=== PATIENT | female | born 1975 | race Two or more races ===

== ENCOUNTER 2020-09-28 17:09 | Emergency (ER) | payer MEDICAID, SELFPAY ==
[2020-09-28 18:46] VITALS: BP 114/64; PULSE 73; RESP 18; TEMP 37.5; O2SAT 100; BMI 28.4
[2020-09-28 19:04] LABS: Glucose Urine UA NEG (NEG); Leukocyte Esterase Urine 3+ (NEG); Nitrite Urine POS (NEG); Specific Gravity - Urine 1.015 (1.005-1.025); UACC Culture Trigger YES; Urine Blood TRACE (NEG); Urine Ketones NEG (NEG); Urine Protein 2+ MG/DL (NEG-TRACE)
[2020-09-28 19:07] LABS: Appearance Urine CLOUDY; Color Urine YELLOW
[2020-09-28 19:12] LABS: Amorphous Sediment Urine 1+ /LPF; Bacteria Urine 1+ /LPF; Mucus Urine 2+ /LPF; Squamous Epithelial Cell Urine 2+ /LPF
--- NOTE | 2020-09-28 21:19 | ED_ITS ---
HPI - Female Genitourinary General Chief complaint: Urogenital-Female Stated complaint: pelvic pain Time Seen by Provider: 09/28/20 21:11 Source: patient Mode of arrival: ambulatory Limitations: no limitations History of Present Illness HPI Narrative: Patient comes to emergency room complaining of UTI symptoms. Patient states she has burning with urination. Patient denies fever, chills, no abdominal pain and no flank pain. Patient states about a week ago she had her menstrual period, think she might have scratched the inner wall of the vaginal canal, denies any bleeding or spotting. MD elicited complaint: UTI Related Data Previous Rx's Medication Instructions Recorded nitrofurantoin monohyd/m-cryst 100 mg PO Q12H 7 Days #14 cap 09/28/20 [Macrobid] phenazopyridine 100 mg PO TID #6 tab 09/28/20 Allergies Allergy/AdvReac Type Severity Reaction Status Date / Time No Known Allergies Allergy Verified 09/28/20 18:45 [No Known Allergies*] Review of Systems Review of Systems: Constitutional : No Weight loss, No Fever, No Chills, No Night Sweats, No Fatigue, No Malaise ENT/Mouth : No Hearing loss, No Ear Pain, No Nasal Congestion, No Sinus Pain, No Hoarseness, No sore throat, No Rhinorrhea, No Swallowing Difficulty Eyes: No Eye Pain, No Swelling, No Redness, No Foreign Body, No Discharge, No Vision Changes Cardiovascular : No Chest Pain, No SOB, No Dyspnea on Exertion, No Orthopnea, No Edema, No Palpitations Respiratory : No Cough, No Sputum, No Wheezing, No Smoke Exposure, No Dyspnea Gastrointestinal : No Nausea, No Vomiting, No Diarrhea, No Constipation, No abdominal Pain, No Hematochezia, No Melena Genitourinary : no irregular bleeding, complaining of dysuria and frequency No Hematuria, No Urinary Incontinence, No Urgency, No Flank Pain, No Urinary Flow Changes, No Hesitancy, complaining of a possible scratch and INR wall of the vaginal canal Musculoskeletal : No joint pain, No Myalgias, No Joint Swelling Skin : No Skin Lesions, No rash Neuro : No Weakness, No Numbness, No Paresthesias, No Loss of Consciousness, No Dizziness, No Headache Psych : No Anxiety/Panic, No Depression, No SI/HI/AH/VH, No Social Issues, Heme/Lymph: No Bruising, No Bleeding,No Lymphadenopathy Endocrine : No Polyuria, No Polydipsia, No Temperature Intolerance [facility] Past Medical History Medical History No pertinent past medical history Social History Social History Advance Directives: No Advance Directives Information Provided: Yes Patient : No Physical Exam Vital Signs: Vital Signs: Last Vital Signs Temp 99.5 F 09/28/20 18:46 Pulse 73 09/28/20 18:46 Resp 18 09/28/20 18:46 BP 114/64 09/28/20 18:46 Pulse Ox 100 09/28/20 18:46 Body Mass Index 28.4 Appearance: Alert. Oriented X3. No acute distress. Eyes: Pupils equal, round and reactive to light. ENT: Pharynx normal. Neck: Normal inspection. Neck supple. No lymph nodes noted. No crepitus CVS: Normal heart rate and rhythm. Pulses normal. Normal S1 and S2 Respiratory: No respiratory distress. Breath sounds normal. No Wheezing. No rales Abdomen: Soft and nontender. No rigidity. No distention. No CVA tenderness : Normal skin, no lacerations in the vaginal mucosa. Skin: Skin warm and dry. Normal skin color. Normal skin turgor. Extremities: No lower extremity edema. No lower extremity edema. No Lacerations. No Rash Neuro: Oriented X 3. No motor deficit. No sensory deficit. Moving all extermities. No slurred speech. Course Course Course Narrative: I discussed the physical exam with the patient, patient has a urinary tract infection, pyelonephritis and sepsis not suspected at this time. MDM - Female Genitourinary Lab Data Labs: Lab Results 09/28/20 Range/Units 18:56 Urine Color YELLOW Urine Appearance CLOUDY Urine pH 7.0 (5.0-8.0) Ur Specific [place] 1.015 (1.005-1.025) Urine Protein 2+ H (NEG-TRACE) MG/DL Urine Glucose (UA) NEG (NEG) MG/DL Urine Ketones NEG (NEG) MG/DL Urine Blood TRACE (NEG) Urine Nitrite POS H (NEG) Ur Leukocyte Esterase 3+ H (NEG) Urine RBC 5-9 H (0) /HPF Urine WBC 76-150 H (0-4) /HPF Ur Squamous Epith Cells 2+ /LPF Amorphous Sediment 1+ /LPF Urine Bacteria 1+ /LPF Urine Mucus 2+ /LPF Discharge Plan Discharge Clinical Impression: Urinary tract infection Patient Disposition: Home, Self-Care Instructions: Urinary Tract Infection in Women (ED) Additional Instructions: Try using different brands of tampons, some have classic applicator, others have paper applicator. Please follow-up with your primary care physician tomorrow. If you have any worsening or new symptoms, please return to the emergency room or call 911 Prescriptions: New nitrofurantoin monohyd/m-cryst [Macrobid] 100 mg capsule 100 mg PO Q12H 7 Days Qty: 14 RF: 0 phenazopyridine 100 mg tablet 100 mg PO TID Qty: 6 RF: 0
[2020-09-28] MEDS: Phenazopyridine HCL 100 MG TABLET PO (22:04)
[2020-09-28] MEDS: Nitrofurantoin Monohyd/M-Cryst 100 MG CAPSULE PO (22:04)
== END 2020-09-28 22:07 | disposition home or self-care (01) ==
PROVIDERS: Emergency Provider Emergency Medicine; PCP Nurse Practitioner Family
DX: N39.0 Urinary tract infection, site not specified (principal)
CPT/HCPCS: 81001; 81003; 87086; 87088; 87186; 99283

== ENCOUNTER 2021-06-11 14:27 | Emergency (ER) | payer MEDICAID, SELFPAY ==
[2021-06-11] VITALS (10 sets, daily range): BP systolic 109–120; BP diastolic 53–67; PULSE 55–89; RESP 16–18; TEMP 36.2–37.8; O2SAT 100; BMI 28.3
--- NOTE | ~2021-06-11 | CT_ITS ---
EXAMINATION: CT ABDOMEN AND PELVIS WITH CONTRAST CLINICAL INFORMATION: Abnormal ultrasound COMPARISON: Ultrasound dated same day TECHNIQUE: Multidetector volumetric images were obtained from the superior aspect of the liver through the pubic symphysis following administration 85 mL of Omnipaque 350 intravenous contrast. Sagittal and coronal reformatted images were obtained on the technologist's workstation. Oral contrast: No This CT examination was performed using dose optimization techniques as appropriate, variously including the following: *Automated exposure control *Adjustment of mA and/or kV according to patient size (this includes techniques or standardized protocols for targeted exams where dose is matched to indication/reason for exam; i.e. extremities or head) *Use of iterative reconstruction technique DLP: 597 mGy-cm FINDINGS: LUNG BASES: The visualized lung bases are unremarkable. LIVER, GALLBLADDER, AND BILIARY TREE: Some scattered small areas of low density are likely incidental. The gallbladder is unremarkable with no evidence of radiopaque gallstones, gallbladder wall thickening, or obvious pericholecystic inflammatory changes. PANCREAS: Unremarkable. SPLEEN: Unremarkable. ADRENAL GLANDS: Unremarkable. KIDNEYS AND URETERS: The kidneys are normal in size, shape, and attenuation. No hydronephrosis, hydroureter, or calculi seen. No perinephric stranding. BLADDER: Unremarkable. GASTROINTESTINAL TRACT: Nonobstructive bowel pattern. ABDOMINAL WALL: No significant hernia is appreciated. LYMPH NODES: Normal. VASCULAR: Unremarkable. PELVIC VISCERA: There is complex attenuation within the pelvis on the right. There is an area of high attenuation which appears somewhat serpiginous and this may well represent an extension of a prominent ovarian vein. The high attenuation may suggest thrombosis. Below this level there is questionable rounded structure measuring 1.4 x 1 cm which could represent a decompressing cyst.. Just posterior to this structure is another possible thick walled structure measuring 1.5 x 1.5 cm. Probable high left ovarian structure. There is free fluid in the cul-de-sac. OSSEOUS STRUCTURES: Unremarkable. CT/CT abdomen pelvis w con IMPRESSION: The right adnexal region is abnormal. As described there is an area of high density which appears serpiginous. Measuring 2 x 1.1 x 2.1 cm. This could be an inferior extension of a prominent ovarian vein. The high attenuation could suggest thrombosis or possible lesion. Small area of hemorrhage would need to be considered Just below this findings may suggest a irregular thick-walled cyst which is decompressing. Posterior to this structure is another possible thick-walled cystic structure There is free fluid. Endometriosis would need to be considered. PID would need to be considered. Complex Ovarian lesion needs to be considered These findings do not exclude the diagnosis of possible distortion Recommendation is pre and postcontrast MRI of the pelvis for further evaluation. Recommend gynecologic consultation Fleischner guidelines were followed.
--- NOTE | ~2021-06-11 | US_ITS ---
EXAMINATION: US PELVIS AND TRANSVAGINAL CLINICAL INFORMATION: Pain. Last menstrual period unknown. History of prior . COMPARISON: Pelvic ultrasound dated from 12/25/2012. TECHNIQUE: Ultrasound of the pelvis is performed using both transabdominal and transvaginal transducers along with Doppler. Transvaginal imaging is performed due to inadequate visualization transabdominally. FINDINGS: UTERUS: The uterus is anteverted and measures 9.7 x 4.8 x 5.6 cm. No fibroids are identified. The double wall endometrial thickness is 9 mm. Nabothian cysts overlie the cervix. The uterus is smooth in contour and has normal myometrial echogenicity. ADNEXA: The right ovary is enlarged and heterogeneous but with preserved flow at the moment of this examination. It measures 4.8 x 4.4 x 3.1 cm (34 mL) without discrete lesions. The left ovary measures 3.2 x 2.5 x 3.0 cm (13 mL) with an approximately 2.4 cm simple cyst, which likely represents a dominant follicle. There is a small amount of free fluid in the cul-de-sac and surrounding the right adnexa. US/US pelvic and transvaginal IMPRESSION: Abnormal appearance of the right ovary which is enlarged and heterogeneous. Although there is some flow within this ovary at the moment of this examination, partial torsion or torsion/detorsion is suspected. Recommend correlation with a CT of the pelvis with intravenous contrast or an MRI of the pelvis with and without intravenous contrast. A distinct lesion within the right ovary is not definitely appreciated. This critical result was discussed with Ree Watters NP at 06/11/2021 7:31 PM and it was ascertained that the content and urgency of the report was understood at the time of direct communication.
--- NOTE | ~2021-06-11 | MR_ITS ---
EXAMINATION: MR PELVIS WITHOUT AND WITH CONTRAST CLINICAL INFORMATION: 46-year-old female with pelvic pain. COMPARISON: Pelvic ultrasound and CT examination from 06/11/2021. TECHNIQUE: MR imaging the pelvis performed on a high-field magnet using standard sequences without and with intravenous administration of 8 mL Gadavist. FINDINGS: The anteverted, anteflexed uterus measures 8.1 x 4.9 x 5.7 cm (cervix to fundus x AP x transverse dimension). There are a few nabothian cysts of the cervix. Otherwise, the cervix is unremarkable. There is a section defect of the anterior lower uterine segment. The endometrium is normal and measures up to 0.9 cm AP. The junctional zone of the myometrium is normal. No evidence of adenomyosis. No uterine leiomyoma. The Essure devices are better seen on the abdomen CT than on this MRI. These devices produce susceptibility artifact (images 17-19, series 10). The right ovary measures 2.5 x 3.5 x 2.1 cm, volume of 9.6 mL, which represents interval decreased size compared to the ultrasound from 06/11/2021. There appears to be a 1.4 cm corpus luteum of the right ovary. There are no pathologic sized follicles within the ovary. No evidence of a hemorrhagic focus. No foci of abnormal T1 signal shortening in the pelvis on the noncontrast images. No findings of endometriosis. The left ovary, which is more anteriorly located than the right ovary, measures 2.4 x 3.5 x 2.3 cm, volume of 10.1 mL. The dominant follicle of the left ovary is 1.9 cm. Small amount of simple appearing free fluid is present within the pelvis. Urinary bladder and urethra are unremarkable. No iliac or inguinal lymphadenopathy. No dilated loops of bowel within the visualized lower abdomen and pelvis. The rectum is unremarkable. The visualized bones of the pelvis have normal marrow signal. The sacroiliac joints are normal. At the L5-S1 level, there is a posterior annular fissure and small central disc protrusion. No significant spinal canal or neural foraminal stenosis at L5-S1. MR/MR pelvis wo/w con IMPRESSION: * No MR imaging evidence of ovarian mass or torsion. The ovaries are normal in size. No evidence of endometriosis. * Small amount of simple appearing free fluid in the pelvis could be secondary to recent rupture of an ovarian cyst/follicle.
[2021-06-11 14:53] LABS: Appearance Urine CLEAR; Basophils Percent Auto 0.3 % (0-2); Color Urine YELLOW; Eosinophils Absolute Auto 0.1 X10*3/uL (0.0-0.4); Glucose Urine UA NEG (NEG); Hematocrit 22.3 % (37.0-47.0); Imm Gran Abs Auto 0.03 X10*3/uL (0.00-0.03); Imm Gran Pct Auto 0.5 % (0.0-0.4); Leukocyte Esterase Urine 1+ (NEG); Lymphocytes Absolute Auto 1.3 X10*3/uL (1.2-4.9); Lymphocytes Percent Auto 19.5 % (20-40); MANUAL DIFF FLAG SCAN; Mean Corpuscular Hemoglobin 15.2 pg (27.0-33.0); Monocytes Absolute Auto 0.3 X10*3/uL (0.1-1.2); Monocytes Percent Auto 5.1 % (2-11); Neutrophils Absolute Auto 4.8 x10*3/uL (2.0-8.3); Neutrophils Percent Auto 72.6 % (45-73); Nitrite Urine NEG (NEG); PH 5.5 (5.0-8.0); PLT CLUMP 1; Red Blood Count 3.81 X10*6/uL (4.20-5.50); Red Cell Distribution Width 21.5 % (11.0-16.0); SCAN SMEAR FLAG 1; Specific Gravity - Urine 1.025 (1.005-1.025); UACC Culture Trigger YES; Urine Blood NEG (NEG); Urine Ketones 5 MG/DL (NEG); Urine Protein NEG (NEG-TRACE)
[2021-06-11 15:04] LABS: Bacteria Urine 2+ /LPF; RBC Urine 0 /HPF (0); Squamous Epithelial Cell Urine 2+ /LPF
[2021-06-11 15:06] LABS: Mean Corpuscular Volume 58.5 fL (80.0-98.0)
[2021-06-11 15:07] LABS: Alanine Aminotransferase 9 U/L (0-31); Albumin Level 4.3 g/dL (3.5-5.0); Alkaline Phosphatase 58 U/L (39-117); Anion Gap 15 (12-20); Aspartate Amino Transferase 10 U/L (5-31); Bilirubin Total 0.5 mg/dL (0.0-1.0); Blood Urea Nitrogen 12 mg/dL (9-16); Calcium 9.2 mg/dL (8.4-10.2); Carbon Dioxide 20 mmol/L (22-29); Chloride 106 mmol/L (96-108); Creatinine Clr Calc Pharmacy 87.9; Estimated Glomerular Filt Rate > 60; Glucose Random 121 mg/dL (60-115); Hemoglobin 5.8 g/dl (12.0-16.0); Potassium 4.1 mmol/L (3.3-5.1); Sodium 137 mmol/L (135-145); Total Protein 7.7 g/dL (6.5-8.0)
[2021-06-11 15:09] LABS: White Blood Count 6.6 X10*3/uL (4.8-10.8)
[2021-06-11 15:10] LABS: Platelet Count 310 X10*3/uL (160-400); SLIDE REVIEW VERIFIED
[2021-06-11 15:45] LABS: UPreg QC Valid YES; Urine Pregnancy NEGATIVE (NEGATIVE)
--- NOTE | 2021-06-11 15:54 | ED.FEMALEGU ---
HPI - Female Genitourinary General Chief complaint: Urogenital-Female <Ree Watters NP - Last Filed: 06/11/21 21:22> Stated complaint: Abd pain <Ree Watters NP - Last Filed: 06/11/21 21:22> Time Seen by Provider: 06/11/21 15:20 <Ree Watters NP - Last Filed: 06/11/21 21:22> Source: patient <Ree Watters NP - Last Filed: 06/11/21 21:22> Mode of arrival: ambulatory <Ree Watters NP - Last Filed: 06/11/21 21:22> Limitations: no limitations <Ree Watters NP - Last Filed: 06/11/21 21:22> History of Present Illness HPI Narrative: 46 yo female with history of heavy, long periods for years here with reports of 2 weeks of pelvic pressure and pain with radiation to the legs, feeling dizzy with position changes and movement. Patient is sexually active with 1 male partner who she has been with for several years. She is not concern for STD exposure. She denies any nausea, vomiting, diarrhea, fevers or chills. She is having some dysuria and frequency. <Ree Watters NP - Last Filed: 06/11/21 21:22> Related Data Home medications: Home Medications Medication Instructions Recorded Confirmed No Known Home Meds 06/12/21 06/12/21 <Ree Watters NP - Last Filed: 06/11/21 21:22> Allergies/Adverse reactions: Allergies Allergy/AdvReac Type Severity Reaction Status Date / Time No Known Allergies Allergy Verified 06/11/21 14:33 [No Known Allergies*] <Ree Watters NP - Last Filed: 06/11/21 21:22> Review of Systems Review of Systems: Yes all other systems are reviewed and are negative <Ree Watters NP - Last Filed: 06/11/21 21:22> Constitutional: Constitutional: Reports no additional constitutional complaints, Denies body ache(s), Denies chills, Denies fever(s), Denies headache(s) and Denies weakness <Ree Watters FLEXO FOLDER GLUER OPERATOR - Last Filed: 06/11/21 21:22> Eyes: Eyes: Reports no additional eye complaints and Denies change in vision <Ree Watters NP - Last Filed: 06/11/21 21:22> ENT: Reports system reviewed and no additional complaints, except as documented, Denies dizziness, Denies headache(s), Denies nasal congestion, Denies nasal discharge and Denies neck pain <Ree Watters FLEXO FOLDER GLUER OPERATOR - Last Filed: 06/11/21 21:22> Cardiovascular: Cardiovascular: Reports no additional cardiovascular complaints, Denies chest pain, Denies leg edema and Denies dyspnea <Ree Watters FLEXO FOLDER GLUER OPERATOR - Last Filed: 06/11/21 21:22> Respiratory: Respiratory: Reports no additional respiratory complaints, Denies cough and Denies dyspnea <Ree Watters FLEXO FOLDER GLUER OPERATOR - Last Filed: 06/11/21 21:22> Gastrointestinal: Gastrointestinal: Reports no additional gastrointestinal complaints, Denies abdominal pain, Denies diarrhea, Denies nausea and Denies vomiting <Ree Watters FLEXO FOLDER GLUER OPERATOR - Last Filed: 06/11/21 21:22> Genitourinary: Genitourinary: Reports no additional female genitourinary complaints, Reports abnormal vaginal bleeding, Reports pelvic pain, Denies flank pain, Denies urinary incontinence, Denies urinary hesitancy and Reports urinary urgency <Ree Watters FLEXO FOLDER GLUER OPERATOR - Last Filed: 06/11/21 21:22> Comments: +frequency <Ree Watters FLEXO FOLDER GLUER OPERATOR - Last Filed: 06/11/21 21:22> Musculoskeletal: Musculoskeletal: Reports no additional musculoskeletal complaints, Denies back pain, Denies arthralgias, Denies joint swelling, Denies neck pain, Denies numbness and Denies tingling <Ree Watters FLEXO FOLDER GLUER OPERATOR - Last Filed: 06/11/21 21:22> Integumentary/Breasts: Skin/Breast: Reports system reviewed and no additional complaints, except as docu and Denies rash <Ree Watters FLEXO FOLDER GLUER OPERATOR - Last Filed: 06/11/21 21:22> Neurologic: Reports system reviewed and no additional complaints, except as documented, Denies Abnormal speech present, Denies dizziness, Denies headache(s), Denies numbness, Denies tingling and Denies weakness <Ree Watters NP - Last Filed: 06/11/21 21:22> [facility] Past Medical History Attestation statement: The following information was validated with the patient. <Ree Watters NP - Last Filed: 06/11/21 21:22> Source: old records reviewed and nursing notes reviewed <Ree Watters NP - Last Filed: 06/11/21 21:22> Medical History: Medical History No pertinent past medical history <Ree Watters NP - Last Filed: 06/11/21 21:22> Social History Social History: Social History Patient Tobacco Use Status: Never used Tobacco Use of substances other than those prescribed or required for medical reasons: No Advance Directives: No Advance Directives Information Provided: No <Ree Watters NP - Last Filed: 06/11/21 21:22> Physical Exam Vital Signs: Vital Signs: Last Vital Signs Temp 98.7 F 06/12/21 08:04 Pulse 59 06/12/21 08:04 Resp 18 06/12/21 08:04 BP 105/52 L 06/12/21 08:04 Pulse Ox 97 06/12/21 05:55 BMI result Body Mass Index 28.3 <Ree aWtters NP - Last Filed: 06/11/21 21:22> Const: General: cooperative, healthy appearing, comfortable and no acute distress <Ree Watters NP - Last Filed: 06/11/21 21:22> Orientation/consciousness: patient oriented x3 <Ree Watters NP - Last Filed: 06/11/21 21:22> Limitations: no limitations <Ree Watters NP - Last Filed: 06/11/21 21:22> HEENT: Head: Yes normal to inspection <Ree Watters NP - Last Filed: 06/11/21 21:22> Ears: hearing grossly normal bilaterally and TM's normal bilaterally <Ree Watters NP - Last Filed: 06/11/21 21:22> General nose exam: Normal external nose present <Ree Watters NP - Last Filed: 06/11/21 21:22> Face and sinus: Yes normal facial exam <Ree Watters NP - Last Filed: 06/11/21 21:22> Mouth: Normal oral and palatal mucosa present <Ree Watters NP - Last Filed: 06/11/21 21:22> Throat: Yes posterior oropharynx normal, Yes tonsils normal and Yes uvula midline <Ree Watters NP - Last Filed: 06/11/21 21:22> Eyes: Other: Pale conjunctivae <Ree Watters NP - Last Filed: 06/11/21 21:22> General: appearance normal, both eyes and all related structures <Ree Watters NP - Last Filed: 06/11/21 21:22> Pupils: Equal, round and reactive pupils present <Ree Watters NP - Last Filed: 06/11/21 21:22> Neck: Neck: Yes normal visual inspection <Ree Watters NP - Last Filed: 06/11/21 21:22> Chest: Chest palpation & inspection: normal inspection of the chest <Ree Watters NP - Last Filed: 06/11/21 21:22> Resp: Effort & Inspection: normal respiratory effort <Ree Watters NP - Last Filed: 06/11/21 21:22> Auscultation: clear to auscultation bilaterally <Ree Watters NP - Last Filed: 06/11/21 21:22> Cardio: Rate: regular rate <Ree Watters NP - Last Filed: 06/11/21 21:22> Rhythm: regular rhythm <Ree Watters NP - Last Filed: 06/11/21 21:22> Peripheral pulses: Peripheral pulses 2+ throughout <Ree Watters NP - Last Filed: 06/11/21 21:22> GI: Inspection: Yes normal to inspection <Ree Watters NP - Last Filed: 06/11/21 21:22> Palpation (GI): Soft to palpation and nontender <Ree Watters NP - Last Filed: 06/11/21 21:22> Auscultation: normal bowel sounds <Ree Watters FLEXO FOLDER GLUER OPERATOR - Last Filed: 06/11/21 21:22> : Other: Yessenia cheney present as toe trimmer <Ree Watters FLEXO FOLDER GLUER OPERATOR - Last Filed: 06/11/21 21:22> Speculum Exam - Vagina: normal appearance of the vagina <Ree Watters FLEXO FOLDER GLUER OPERATOR - Last Filed: 06/11/21 21:22> Speculum Exam - Cervix: normal appearance of the cervix <Ree Watters FLEXO FOLDER GLUER OPERATOR - Last Filed: 06/11/21 21:22> Bimanual exam- vagina & uterus: normal bimanual exam <Ree Watters NP - Last Filed: 06/11/21 21:22> Bimanual Exam- Adnexa, other: normal adnexae <Ree Watters NP - Last Filed: 06/11/21 21:22> Back/Spine/Pelvis: Thoracic/Lumbar Spine: thoracic and lumbar spine normal to inspection <Ree Watters NP - Last Filed: 06/11/21 21:22> Skin: General skin exam: no rashes or lesions noted <Ree Watters NP - Last Filed: 06/11/21 21:22> Neuro: General: patient oriented x3, no focal motor deficits and normal sensation to monofilament <Ree Watters NP - Last Filed: 06/11/21 21:22> Cranial nerves: Yes Equal, round and reactive pupils present <Ree Watters NP - Last Filed: 06/11/21 21:22> Cognition (Neuro): normal cognition <Ree Watters NP - Last Filed: 06/11/21 21:22> Speech: No Abnormal speech present <Ree Watters NP - Last Filed: 06/11/21 21:22> Gait exam (Neuro): Normal gait present <Ree Watters NP - Last Filed: 06/11/21 21:22> Motor exam (neuro): 5/5 motor strength present throughout <Ree Watters NP - Last Filed: 06/11/21 21:22> Extrem: General: Yes normal to inspection, Yes no pedal edema and Yes no calf tenderness <Ree Watters NP - Last Filed: 06/11/21 21:22> Course Course Course Narrative: 46-year-old female here with reports of longstanding history of heavy and vaginal bleeding. Not having pelvic pain with some urinary symptoms. Will check labs, UA, pelvic ultrasound, check pelvic exam 163-patient's hemoglobin is 5.8. Most previous hemoglobin of from May of 2019 was 7.6. Type and screen ordered. 2 units of PRBC ordered. Patient consented for blood 1929-ultrasound showed IMPRESSION: Abnormal appearance of the right ovary which is enlarged and heterogeneous. Although there is some flow within this ovary at the moment of this examination, partial torsion or torsion/detorsion is suspected. Recommend correlation with a CT of the pelvis with intravenous contrast or an MRI of the pelvis with and without intravenous contrast. A distinct lesion within the right ovary is not definitely appreciated. -I spoke to the radiologist that this. She recommend obtaining a CT of the pelvis with IV contrast to evaluate further. -I spoke to the patient.. She has not seen a way inspector several years. She cannot recall her last Pap smear. 2119-Sign out to Susan LEON pending CT A/P <Ree Watters NP - Last Filed: 06/11/21 21:22> MDM - Female Genitourinary Medical Records Attestation: I reviewed the patient's medical records. <Ree Watters NP - Last Filed: 06/11/21 21:22> Lab Data Attestation: I reviewed the patient's lab results. <Ree Watters NP - Last Filed: 06/11/21 21:22> Result diagrams: : 06/12/21 06:00 06/11/21 14:39 <Ree Watters NP - Last Filed: 06/11/21 21:22> Labs: Lab Results 06/11/21 06/11/21 06/11/21 Range/Units 14:39 14:39 14:39 WBC 6.6 (4.8-10.8) X10*3/uL RBC 3.81 L (4.20-5.50) X10*6/uL Hgb 5.8 L* (12.0-16.0) g/dl Hct 22.3 L (37.0-47.0) % MCV 58.5 L (80.0-98.0) fL MCH 15.2 L (27.0-33.0) pg MCHC 26.0 L (31.0-35.0) g/dl RDW 21.5 H (11.0-16.0) % Plt Count 310 (160-400) X10*3/uL MPV Not Reportable Immature Gran % (Auto) 0.5 H (0.0-0.4) % Neut % (Auto) 72.6 (45-73) % Lymph % (Auto) 19.5 L (20-40) % [place] % (Auto) 5.1 (2-11) % Eos % (Auto) 2.0 (0-4) % Baso % (Auto) 0.3 (0-2) % Lymph # (Auto) 1.3 (1.2-4.9) X10*3/uL [place] # (Auto) 0.3 (0.1-1.2) X10*3/uL Eos # (Auto) 0.1 (0.0-0.4) X10*3/uL Baso # (Auto) 0.0 (0.0-0.2) X10*3/uL Abs Immat Gran (auto) 0.03 (0.00-0.03) X10*3/uL Absolute Neuts (auto) 4.8 (2.0-8.3) x10*3/uL Absolute Nucleated RBC 0.000 (0.0-0.012) X10*3/uL Nucleated RBC % (auto) 0.0 (0.0-0.2) /100WBC Smear Tech's Comments VERIFIED PT (9.9-13.0) SEC INR (0.9-1.1) Sodium 137 (135-145) mmol/L Potassium 4.1 (3.3-5.1) mmol/L Chloride 106 (96-108) mmol/L Carbon Dioxide 20 L (22-29) mmol/L Anion Gap 15 (12-20) BUN 12 (9-16) mg/dL Creatinine 0.83 (0.5-1.4) mg/dL Estim Creat Clear Calc 87.9 Estimated GFR > 60 Random Glucose 121 H (60-115) mg/dL Calcium 9.2 (8.4-10.2) mg/dL Total Bilirubin 0.5 (0.0-1.0) mg/dL AST 10 (5-31) U/L ALT 9 (0-31) U/L Alkaline Phosphatase 58 (39-117) U/L Troponin I High Sens Total Protein 7.7 (6.5-8.0) g/dL Albumin 4.3 (3.5-5.0) g/dL Urine Color YELLOW Urine Appearance CLEAR Urine pH 5.5 (5.0-8.0) Ur Specific [place] 1.025 (1.005-1.025) Urine Protein NEG (NEG-TRACE) MG/DL Urine Glucose (UA) NEG (NEG) MG/DL Urine Ketones 5 (NEG) MG/DL Urine Blood NEG (NEG) Urine Nitrite NEG (NEG) Ur Leukocyte Esterase 1+ H (NEG) Urine RBC 0 (0) /HPF Urine WBC 15-29 H (0-4) /HPF Ur Squamous Epith Cells 2+ /LPF Urine Bacteria 2+ /LPF Urine Test (NEGATIVE) COVID-19 (FLAVIO) (Negative) COVID-19 Clin Com Blood Type Antibody Screen Crossmatch 06/11/21 06/11/21 06/11/21 Range/Units 14:39 14:39 15:54 WBC (4.8-10.8) X10*3/uL RBC (4.20-5.50) X10*6/uL Hgb (12.0-16.0) g/dl Hct (37.0-47.0) % MCV (80.0-98.0) fL MCH (27.0-33.0) pg MCHC (31.0-35.0) g/dl RDW (11.0-16.0) % Plt Count (160-400) X10*3/uL MPV Immature Gran % (Auto) (0.0-0.4) % Neut % (Auto) (45-73) % Lymph % (Auto) (20-40) % [place] % (Auto) (2-11) % Eos % (Auto) (0-4) % Baso % (Auto) (0-2) % Lymph # (Auto) (1.2-4.9) X10*3/uL [place] # (Auto) (0.1-1.2) X10*3/uL Eos # (Auto) (0.0-0.4) X10*3/uL Baso # (Auto) (0.0-0.2) X10*3/uL Abs Immat Gran (auto) (0.00-0.03) X10*3/uL Absolute Neuts (auto) (2.0-8.3) x10*3/uL Absolute Nucleated RBC (0.0-0.012) X10*3/uL Nucleated RBC % (auto) (0.0-0.2) /100WBC Smear Tech's Comments PT 13.4 H (9.9-13.0) SEC INR 1.2 H (0.9-1.1) Sodium (135-145) mmol/L Potassium (3.3-5.1) mmol/L Chloride (96-108) mmol/L Carbon Dioxide (22-29) mmol/L Anion Gap (12-20) BUN (9-16) mg/dL Creatinine (0.5-1.4) mg/dL Estim Creat Clear Calc Estimated GFR Random Glucose (60-115) mg/dL Calcium (8.4-10.2) mg/dL Total Bilirubin (0.0-1.0) mg/dL AST (5-31) U/L ALT (0-31) U/L Alkaline Phosphatase (39-117) U/L Troponin I High Sens Cancelled Total Protein (6.5-8.0) g/dL Albumin (3.5-5.0) g/dL Urine Color Urine Appearance Urine pH (5.0-8.0) Ur Specific [place] (1.005-1.025) Urine Protein (NEG-TRACE) MG/DL Urine Glucose (UA) (NEG) MG/DL Urine Ketones (NEG) MG/DL Urine Blood (NEG) Urine Nitrite (NEG) Ur Leukocyte Esterase (NEG) Urine RBC (0) /HPF Urine WBC (0-4) /HPF Ur Squamous Epith Cells /LPF Urine Bacteria /LPF Urine Test NEGATIVE (NEGATIVE) COVID-19 (FLAVIO) (Negative) COVID-19 Clin Com Blood Type Antibody Screen Crossmatch 06/11/21 06/12/21 06/12/21 Range/Units 15:58 00:52 06:00 WBC 6.1 (4.8-10.8) X10*3/uL RBC 3.65 L (4.20-5.50) X10*6/uL Hgb 6.4 L* (12.0-16.0) g/dl Hct 22.6 L (37.0-47.0) % MCV 61.9 L (80.0-98.0) fL MCH 17.5 L (27.0-33.0) pg MCHC 28.3 L (31.0-35.0) g/dl RDW 25.8 H (11.0-16.0) % Plt Count TNP (160-400) X10*3/uL MPV TNP Immature Gran % (Auto) 0.2 (0.0-0.4) % Neut % (Auto) 60.3 (45-73) % Lymph % (Auto) 28.4 (20-40) % [place] % (Auto) 8.5 (2-11) % Eos % (Auto) 2.3 (0-4) % Baso % (Auto) 0.3 (0-2) % Lymph # (Auto) 1.7 (1.2-4.9) X10*3/uL [place] # (Auto) 0.5 (0.1-1.2) X10*3/uL Eos # (Auto) 0.1 (0.0-0.4) X10*3/uL Baso # (Auto) 0.0 (0.0-0.2) X10*3/uL Abs Immat Gran (auto) 0.01 (0.00-0.03) X10*3/uL Absolute Neuts (auto) 3.7 (2.0-8.3) x10*3/uL Absolute Nucleated RBC 0.000 (0.0-0.012) X10*3/uL Nucleated RBC % (auto) 0.0 (0.0-0.2) /100WBC Smear Tech's Comments VERIFIED PT (9.9-13.0) SEC INR (0.9-1.1) Sodium (135-145) mmol/L Potassium (3.3-5.1) mmol/L Chloride (96-108) mmol/L Carbon Dioxide (22-29) mmol/L Anion Gap (12-20) BUN (9-16) mg/dL Creatinine (0.5-1.4) mg/dL Estim Creat Clear Calc Estimated GFR Random Glucose (60-115) mg/dL Calcium (8.4-10.2) mg/dL Total Bilirubin (0.0-1.0) mg/dL AST (5-31) U/L ALT (0-31) U/L Alkaline Phosphatase (39-117) U/L Troponin I High Sens Total Protein (6.5-8.0) g/dL Albumin (3.5-5.0) g/dL Urine Color Urine Appearance Urine pH (5.0-8.0) Ur Specific [place] (1.005-1.025) Urine Protein (NEG-TRACE) MG/DL Urine Glucose (UA) (NEG) MG/DL Urine Ketones (NEG) MG/DL Urine Blood (NEG) Urine Nitrite (NEG) Ur Leukocyte Esterase (NEG) Urine RBC (0) /HPF Urine WBC (0-4) /HPF Ur Squamous Epith Cells /LPF Urine Bacteria /LPF Urine Test (NEGATIVE) COVID-19 (FLAVIO) Negative (Negative) COVID-19 Clin Com See Note Blood Type O Positive Antibody Screen NEGATIVE Crossmatch See Detail <Ree Watters NP - Last Filed: 06/11/21 21:22> Imaging Data US - abdomen: Attestation: I personally reviewed and interpreted this imaging study as follows: <Ree Watters NP - Last Filed: 06/11/21 21:22> Radiologist's impression: IMPRESSION: Abnormal appearance of the right ovary which is enlarged and heterogeneous. Although there is some flow within this ovary at the moment of this examination, partial torsion or torsion/detorsion is suspected. Recommend correlation with a CT of the pelvis with intravenous contrast or an MRI of the pelvis with and without intravenous contrast. A distinct lesion within the right ovary is not definitely appreciated. <Ree Watters NP - Last Filed: 06/11/21 21:22> ECG Data Attestation: I personally reviewed and interpreted this ECG as follows: <Ree Watters NP - Last Filed: 06/11/21 21:22> ECG interpretation date: 06/11/21 <Ree Watters NP - Last Filed: 06/11/21 21:22> ECG interpretation time: 18:03 <Ree Watters NP - Last Filed: 06/11/21 21:22> Interpretation: Normal sinus rhythm with rate 87, normal PA, normal QRS, normal QT <Ree Watters NP - Last Filed: 06/11/21 21:22> Discharge Plan Discharge Clinical Impression: Anemia, Hemorrhagic ovarian cyst, Thrombosis of ovarian vein <Ree Watters NP - Last Filed: 06/11/21 21:22> Patient Disposition: Admitted As Inpatient <Ree Watters NP - Last Filed: 06/11/21 21:22>
[2021-06-11 16:03] LABS: INTERNATIONAL NORM RATIO 1.2 (0.9-1.1); Prothrombin Time 13.4 SEC (9.9-13.0)
--- NOTE | 2021-06-11 17:23 | PC.NURSE ---
pt off floor to ultrasound
[2021-06-11] MEDS: Ketorolac Tromethamine 30 MG/ML VIAL IVPUSH (20:33)
[2021-06-11] MEDS: iohexoL 350 MG/ML 100 ML INFUS..BTL IV (20:55)
[2021-06-12] VITALS (13 sets, daily range): BP systolic 97–117; BP diastolic 42–66; PULSE 57–71; RESP 16–18; TEMP 36.3–37.8; O2SAT 97–99
--- NOTE | 2021-06-12 00:53 | PC.NURSE ---
CALL OUT TO [facility] ([phone]) @[phone] REGARDING TRANSFER OF PATIENT
[2021-06-12 01:10] LABS: COVID-19 Test Negative (Negative)
[2021-06-12] MEDS: Morphine Sulfate 4 MG/ML CARTRIDGE IVPUSH (01:53)
--- NOTE | 2021-06-12 01:57 | PC.NURSE ---
call out to [facility] transfer line ([phone]) @[phone]. Not accepting any non emergent patients at this time
[2021-06-12 06:07] LABS: Basophils Percent Auto 0.3 % (0-2); Eosinophils Absolute Auto 0.1 X10*3/uL (0.0-0.4); Eosinophils Percent Auto 2.3 % (0-4); Hematocrit 22.6 % (37.0-47.0); Imm Gran Abs Auto 0.01 X10*3/uL (0.00-0.03); Imm Gran Pct Auto 0.2 % (0.0-0.4); Lymphocytes Absolute Auto 1.7 X10*3/uL (1.2-4.9); Lymphocytes Percent Auto 28.4 % (20-40); MANUAL DIFF FLAG SCAN; Mean Corpuscular HGB Conc 28.3 g/dl (31.0-35.0); Mean Corpuscular Hemoglobin 17.5 pg (27.0-33.0); Monocytes Absolute Auto 0.5 X10*3/uL (0.1-1.2); Monocytes Percent Auto 8.5 % (2-11); Neutrophils Absolute Auto 3.7 x10*3/uL (2.0-8.3); Neutrophils Percent Auto 60.3 % (45-73); PLT CLUMP 1; Red Blood Count 3.65 X10*6/uL (4.20-5.50); Red Cell Distribution Width 25.8 % (11.0-16.0); SCAN SMEAR FLAG 1
[2021-06-12 06:11] LABS: Hemoglobin 6.4 g/dl (12.0-16.0); Mean Corpuscular Volume 61.9 fL (80.0-98.0)
[2021-06-12 06:24] LABS: White Blood Count 6.1 X10*3/uL (4.8-10.8)
[2021-06-12 06:25] LABS: SLIDE REVIEW VERIFIED
--- NOTE | 2021-06-12 06:27 | PM.EVENT ---
Event Note Date of Service: 06/12/21 Event Note: I was asked to admit this patient for abnormal CT of the pelvic/adnexal region. After reviewing the CT scan in detail, I feel that patient would be best served by [facility] team. I was able to get in touch with Dr. Anderson, we discussed the case over the phone. Dr. Anderson will be evaluating the patient in the ED. patient hemoglobin did not improve with 2 units of PRBC, I ordered 1 unit of PRBC presuming that she may be under my care initially, as well as 1 L of LR given her hypotension. I will no longer be the physician taking care of this patient as this is a gynecological issue, discussed with Dr. Justin Srinivasan and he will be resuming care from now on. ED was also updated on this information
[2021-06-12] MEDS: traMADoL HCL 50 MG TABLET PO (06:51)
--- NOTE | 2021-06-12 07:12 | PC.NURSE ---
pt alert and oriented, skin appropriate for ethnicity, respirations even and unlabored, pt reports lower abd/pelvic pain at 6/10, denies vaginal bleeding. dr Anderson arrived to evaluate the pt
--- NOTE | 2021-06-12 07:29 | P.CONOB_ITS ---
DEPOSITION REPORTER - CN: HPI Data of Consult Consult date: 06/12/21 Primary Care Provider: Emily Butt NP Consult Narrative Narrative: I was consulted on Bronwyn Nava, at 7 a.m.,(at the beginning of my call shift), the patient is a 46 year old female presented emergency room yesterday with right sided pelvic pain that started 2 weeks ago. The pain started slowly more on the right no associated GI or symptoms, no fever or chills, no nausea or vomiting. The patient has a long-term history of heavy menstrual associated with passage blood clots and pelvic cramping. In the emergency room the following workup was done: Urine showed +1 leukocyte esterase and wbc's, urine culture sent, negative test. H&H 5.8/22.3, the patient received 2 units of packed RBCs, repeat H and H 06:00 was 6.4/22.6 Pelvic ultrasound was done showed the following: Abnormal appearance of the right ovary which is enlarged and heterogeneous. Although there is some flow within this ovary at the moment of this examination, partial torsion or torsion/detorsion is suspected. Recommend correlation with a CT of the pelvis with intravenous contrast or an MRI of the pelvis with and without intravenous contrast. A distinct lesion within the right ovary is not definitely appreciated. MRI not available overnight so a CT scan of abdomen and pelvis was done and showed the following: There is complex attenuation within the pelvis on the right. There is an area of high attenuation which appears somewhat serpiginous and this may well represent an extension of a prominent ovarian vein. The high attenuation may suggest thrombosis. Below this level there is questionable rounded structure measuring 1.4 x 1 cm which could represent a decompressing cyst.. Just posterior to this structure is another possible thick walled structure measuring 1.5 x 1.5 cm. Probable high left ovarian structure. There is free fluid in the cul-de-sac. The patient is doing well with minimal pain in the right pelvic area, nausea or vomiting, no vaginal bleeding. cc:: CC: MECHATRONICS TECHNICIAN - Review of Systems Review of Systems ROS Unobtainable: All systems reviewed & are unremarkable except as noted in HPI and below Cardiovascular: Denies Palpatations, Loss of consciousness or Chest pain Respiratory: Denies Cough, Wheezing or Shortness of breath Musculoskeletal: Denies Low back pain Gastrointestinal: Denies Heartburn, Constipation, Diarrhea, Nausea or Vomiting Genitourinary: Denies Pain with urination, Burning with urination or Urinary frequency Neurological: Denies Migranes Psychological: Denies Depression OB PMFSH Past Medical History Medical History No pertinent past medical history Social History Social History Patient Tobacco Use Status: Never used Tobacco Use of substances other than those prescribed or required for medical reasons: No Advance Directives: No Advance Directives Information Provided: No Meds Allergies Allergy/AdvReac Type Severity Reaction Status Date / Time No Known Allergies Allergy Verified 06/11/21 14:33 [No Known Allergies*] DEPOSITION REPORTER Physical Exam Vitals Vital signs: Temp Pulse Resp BP Pulse Ox 99.6 F 61 16 104/52 L 97 06/12/21 02:00 06/12/21 06:30 06/12/21 06:30 06/12/21 06:30 06/12/21 05:55 BMI result Body Mass Index 28.3 Constitutional General Appearance: Healthy appearing, Well-nourished and Well-developed Psychiatric Mood and Affect: active and alert, normal mood and normal affect Skin Appearance: No rashes and No lesions Lungs Respiratory Effort: No intercostal retractions Auscultation: Clear to auscultation Cardiovascular Auscultation: RRR Abdomen Auscultation/Inspection/Palpation: Normal bowel sounds, Soft, Non-distended, No CVA tenderness, Tenderness (Mild right abdominal tenderness, no guarding or rebound) and Guarding Female Genitalia (Pelvic) Vulva: No lesions Cervix: Cervical motion tenderness Uterus: Tender Adnexa/Parametria: Adnexal Tenderness: Right Additional Comments: No bleeding per vagina; White discharge in the vagina DEPOSITION REPORTER - Results Labs CBC & Chem 7: 06/12/21 11:42 06/11/21 14:39 Labs: Short CBC 06/11/21 06/12/21 Range/Units 14:39 06:00 WBC 6.6 6.1 (4.8-10.8) X10*3/uL Hgb 5.8 L* 6.4 L* (12.0-16.0) g/dl Hct 22.3 L 22.6 L (37.0-47.0) % Plt Count 310 TNP (160-400) X10*3/uL BMP 06/11/21 14:39 Sodium 137 Potassium 4.1 Chloride 106 Carbon Dioxide 20 L BUN 12 Creatinine 0.83 Calcium 9.2 Liver Function 06/11/21 Range/Units 14:39 Total Bilirubin 0.5 (0.0-1.0) mg/dL AST 10 (5-31) U/L ALT 9 (0-31) U/L Alkaline Phosphatase 58 (39-117) U/L Albumin 4.3 (3.5-5.0) g/dL Urine 06/11/21 06/11/21 Range/Units 14:39 14:39 Urine Color YELLOW Urine Appearance CLEAR Urine pH 5.5 (5.0-8.0) Ur Specific [place] 1.025 (1.005-1.025) Urine Protein NEG (NEG-TRACE) MG/DL Urine Glucose (UA) NEG (NEG) MG/DL Urine Test NEGATIVE (NEGATIVE) Antibody Screen Antibody Screen NEGATIVE 06/11/21 15:[address] scan - pelvis: Radiologist's impression: ITS Impressions Pelvic/Transvag US 06/11/21 17:34 IMPRESSION: Abnormal appearance of the right ovary which is enlarged and heterogeneous. Although there is some flow within this ovary at the moment of this examination, partial torsion or torsion/detorsion is suspected. Recommend correlation with a CT of the pelvis with intravenous contrast or an MRI of the pelvis with and without intravenous contrast. A distinct lesion within the right ovary is not definitely appreciated. This critical result was discussed with Ree Watters NP at 06/11/2021 7:31 PM and it was ascertained that the content and urgency of the report was understood at the time of direct communication. Abdomen/Pelvis CT 06/11/21 20:59 IMPRESSION: The right adnexal region is abnormal. As described there is an area of high density which appears serpiginous. Measuring 2 x 1.1 x 2.1 cm. This could be an inferior extension of a prominent ovarian vein. The high attenuation could suggest thrombosis or possible lesion. Small area of hemorrhage would need to be considered Just below this findings may suggest a irregular thick-walled cyst which is decompressing. Posterior to this structure is another possible thick-walled cystic structure There is free fluid. Endometriosis would need to be considered. PID would need to be considered. Complex Ovarian lesion needs to be considered These findings do not exclude the diagnosis of possible distortion Recommendation is pre and postcontrast MRI of the pelvis for further evaluation. Recommend gynecologic consultation Fleischner guidelines were followed. Assessment and Plan (1) Anemia: Status: Acute Recommended 1 unit of packed RBC and repeat CBC prior to discharge. Since the patient is not currently having any vaginal bleeding, recommend iron sulfate 325 mg p.o. t.i.d. with out patient follow-up in office in 3 days for workup and treatment for abnormal uterine bleeding including endometrial biopsy to rule out endometrial pathology including hyperplasia endometrial malignancy or polyps 11:42 H&H post transfusion 7.5/25.9 12:40 MRI of the pelvis showed the following: *? No MR imaging evidence of ovarian mass or torsion. The ovaries are normal in size. No evidence of endometriosis. *? Small amount of simple appearing free fluid in the pelvis could be secondary to recent rupture of an ovarian cyst/follicle. Discharge the patient for follow-up in the office in 3 days with the following instructions come back to the emergency room in case of fever above 100.4, nausea and vomiting, persistent or worsening of the pain heavy vaginal bleeding. ? (2) Pelvic pain: Status: Acute Since the patient has positive cervical motion tenderness uterine adnexal tenderness will treat for possible PID with Levaquin/Flagyl p.o. Recommended MRI of the pelvis. If there are no concerning findings on MRI will discharge patient on p.o. antibiotics, follow-up in the office in 3 days. Instructions to be given the patient to call in case of fever, nausea and vomiting, worsening of the pain, heavy vaginal
--- NOTE | 2021-06-12 07:55 | PC.NURSE ---
pt is reporting some nausea at this time
[2021-06-12] MEDS: ondansetron HCL 4 MG/2 ML VIAL IVPUSH (08:10)
--- NOTE | 2021-06-12 10:03 | PC.NURSE ---
pt reports that her nausea is better
[2021-06-12 10:11] LABS: CT PCR NOT DETECTED (Not Detect.); NG PCR NOT DETECTED (Not Detect.)
--- NOTE | 2021-06-12 10:22 | PC.NURSE ---
pt of to mri
--- NOTE | 2021-06-12 11:30 | PC.NURSE ---
pt a&ox3, vss, reports decreased dizziness, pain remains the same at 6/10, labs drawn, pt requesting ice chips.
[2021-06-12 11:35] LABS: MANUAL DIFF FLAG NO
[2021-06-12 11:44] LABS: Basophils Percent Auto 0.3 % (0-2); Eosinophils Absolute Auto 0.1 X10*3/uL (0.0-0.4); Eosinophils Percent Auto 1.3 % (0-4); Hematocrit 25.4 % (37.0-47.0); Hemoglobin 7.3 g/dl (12.0-16.0); Imm Gran Abs Auto 0.03 X10*3/uL (0.00-0.03); Imm Gran Pct Auto 0.5 % (0.0-0.4); Lymphocytes Absolute Auto 0.9 X10*3/uL (1.2-4.9); Lymphocytes Percent Auto 14.2 % (20-40); Mean Corpuscular HGB Conc 28.7 g/dl (31.0-35.0); Mean Corpuscular Hemoglobin 18.5 pg (27.0-33.0); Mean Corpuscular Volume 64.3 fL (80.0-98.0); Monocytes Absolute Auto 0.4 X10*3/uL (0.1-1.2); Monocytes Percent Auto 6.8 % (2-11); Neutrophils Absolute Auto 4.6 x10*3/uL (2.0-8.3); Neutrophils Percent Auto 76.9 % (45-73); Platelet Count 248 X10*3/uL (160-400); Red Blood Count 3.95 X10*6/uL (4.20-5.50); Red Cell Distribution Width 28.2 % (11.0-16.0)
[2021-06-12 11:46] LABS: MANUAL DIFF FLAG NO
[2021-06-12 11:51] LABS: Basophils Percent Auto 0.3 % (0-2); Eosinophils Absolute Auto 0.1 X10*3/uL (0.0-0.4); Eosinophils Percent Auto 1.6 % (0-4); Hematocrit 25.9 % (37.0-47.0); Hemoglobin 7.5 g/dl (12.0-16.0); Imm Gran Abs Auto 0.03 X10*3/uL (0.00-0.03); Imm Gran Pct Auto 0.5 % (0.0-0.4); Lymphocytes Percent Auto 15.6 % (20-40); Mean Corpuscular Hemoglobin 18.8 pg (27.0-33.0); Monocytes Absolute Auto 0.4 X10*3/uL (0.1-1.2); Monocytes Percent Auto 6.9 % (2-11); Neutrophils Absolute Auto 4.8 x10*3/uL (2.0-8.3); Neutrophils Percent Auto 75.1 % (45-73); Platelet Count 247 X10*3/uL (160-400); Red Cell Distribution Width 28.2 % (11.0-16.0); White Blood Count 6.3 X10*3/uL (4.8-10.8)
[2021-06-12 11:52] LABS: Mean Corpuscular Volume 64.8 fL (80.0-98.0)
--- NOTE | 2021-06-12 13:54 | PC.NURSE ---
went into room to discharge pt, pt reporting new headache, diaphoretic, provider notified, rectal exam and blood occult sample collected by provider, regular diet lunch tray ordered for pt - hasn't eaten since yesterday. will continue to monitor.
[2021-06-12 13:55] LABS: OBS1 NEGATIVE (NEGATIVE)
[2021-06-12 13:56] LABS: OBS Int Ctl Valid YES
--- NOTE | 2021-06-12 15:39 | PC.NURSE ---
pt a&ox3, vss, ambulated around ED, pt reports very slight dizziness, decrease in pain - headache resolved, spoke w provider, okay to discharge.
== END 2021-06-12 20:49 | disposition home or self-care (01) ==
PROVIDERS: Internal Medicine; Nurse Practitioner Family; Obstetrics & Gynecology; Emergency Provider Emergency Medicine; PCP Nurse Practitioner Family
DX: D64.9 Anemia, unspecified (principal); N83.201 Unspecified ovarian cyst, right side; I82.890 Acute embolism and thrombosis of other specified veins; R10.2 Pelvic and perineal pain; N93.9 Abnormal uterine and vaginal bleeding, unspecified; R42 Dizziness and giddiness; Z20.822 Contact with and (suspected) exposure to COVID-19
CPT/HCPCS: 36415; 36430; 72197; 74177; 76830; 76856; 80053; 81001; 81025; 82272; 85025; 85610; 86850; 86900; 86901; 86923; 87086; 87088; 87186; 87491; 87591; 87635; 96374; 96375; 99285; A9585; J1885; J2270; J2405; P9016; Q9967

== ENCOUNTER 2021-06-22 14:13 | Outpatient (REF) | payer MEDICAID, SELFPAY ==
[2021-06-22 16:04] LABS: Hemoglobin 8.6 g/dl (12.0-16.0)
[2021-06-22 16:05] LABS: Hematocrit 30.2 % (37.0-47.0); Mean Corpuscular HGB Conc 28.5 g/dl (31.0-35.0); Mean Corpuscular Hemoglobin 19.7 pg (27.0-33.0); Mean Corpuscular Volume 69.1 fL (80.0-98.0); Platelet Count 380 X10*3/uL (160-400); Red Blood Count 4.37 X10*6/uL (4.20-5.50); White Blood Count 5.2 X10*3/uL (4.8-10.8)
[2021-06-22 16:26] LABS: PLT ABN DIST 1
[2021-06-22 16:52] LABS: HCG Quantitative < 2 mIU/mL; TSH reflex Free T4 2.82 uIU/mL (0.32-4.0)
[2021-06-22 18:23] LABS: CT PCR NOT DETECTED (Not Detect.); NG PCR NOT DETECTED (Not Detect.)
[2021-06-24 17:01] LABS: HPV mRNA E6/E7 rflx Not Detected (Not Detected)
== END 2021-06-22 14:14 | disposition home or self-care (01) ==
LOC: HO.LAB 14:13
PROVIDERS: PCP Nurse Practitioner Family; Visit Provider Obstetrics & Gynecology
DX: Z01.411 Encounter for gynecological examination (general) (routine) with abnormal findings (principal); Z11.51 Encounter for screening for human papillomavirus (HPV); N93.9 Abnormal uterine and vaginal bleeding, unspecified
CPT/HCPCS: 36415; 81025; 84443; 84702; 85027; 87491; 87591; 87624; 88142; 88305; 99212

== ENCOUNTER → 2021-06-28 14:54 | Outpatient (BNVA) | payer MEDICAID, SELFPAY | PROVIDERS: PCP Nurse Practitioner Family; Visit Provider Obstetrics & Gynecology | DX: N93.9 Abnormal uterine and vaginal bleeding, unspecified (principal) | CPT/HCPCS: 99212 ==

== ENCOUNTER 2021-07-01 15:59 | Outpatient (REF) | payer MEDICAID, SELFPAY ==
--- NOTE | ~2021-07-01 | MM_ITS ---
EXAMINATION: MM SCREENING DIGITAL BREAST TOMOSYNTHESIS, BILATERAL CLINICAL INFORMATION: Screening. Asymptomatic. No prior breast imaging. Age 46. No known family history breast cancer. The lifetime risk of breast cancer based on the Tyrer-Cuzick Model is 8%. COMPARISON: None (current study represents initial baseline exam). TECHNIQUE: Digital breast tomosynthesis is performed in both the craniocaudal and mediolateral oblique views along with computer-aided detection (CAD). Synthesized 2D images are generated from the tomosynthesis. FINDINGS: There are scattered areas of fibroglandular density (ACR BI-RADS breast composition Category b). There are no significant masses, abnormal calcifications, or other abnormalities. The axilla and skin contours are unremarkable. MM/MM tomosynthesis screening BI IMPRESSION: No mammographic evidence of malignancy. ASSESSMENT: BI-RADS 1: Negative RECOMMENDATION: Routine annual mammography screening. This patient's information was entered into a reminder system with a target due date for their next mammogram.
== END 2021-07-01 16:00 | disposition home or self-care (01) ==
LOC: HO.MAMMO 15:59
PROVIDERS: Visit Provider Obstetrics & Gynecology
DX: Z12.31 Encounter for screening mammogram for malignant neoplasm of breast (principal)
CPT/HCPCS: 77063; 77067

== ENCOUNTER 2021-07-02 10:43 | Day surgery (SDC) | payer MEDICAID, SELFPAY ==
--- NOTE | 2021-07-01 08:49 | HO.ANESPROP2 ---
Documented by User: Livia Timmons NP 07/01/21 08:50 HPI - Anesthesia Eval Consult details Narrative: 46yo F for Uterine Ablation w/Novasure PMF Active Problems Active Problems: All Active Problems (Updated 06/28/21 @ 15:09 by Adryan Anderson MD) Abnormal uterine bleeding (Acute) Pelvic pain (Acute) Past Medical History Medical History No pertinent past medical history Family History Family History Maternal Grandmother Breast CA Surgical History Surgical History H/O gastric sleeve H/O tubal ligation Hx of section Social History Social History Patient Tobacco Use Status: Never used Tobacco Are you DNR?: No Advance Directives: No Advance Directives Information Provided: Yes Nutrition Risks: No Nutritional Risk Patient : No Meds Allergies Allergy/AdvReac Type Severity Reaction Status Date / Time No Known Allergies Allergy Verified 06/22/21 14:26 [No Known Allergies*] Exam Exam Date and Time: July 01, 2021 0849 Pertinent Lab Results Pertinent Lab Results: Laboratory Tests 06/11/21 06/22/21 14:39 15:18 WBC 5.2 Hgb 8.6 L Hct 30.2 L Plt Count 380 D Sodium 137 Potassium 4.1 Chloride 106 BUN 12 Creatinine 0.83 Assessment and Plan Assessment Anesthesia Assessment: Chart Reviewed Documented by User: Elina Smallwood MD 07/02/21 11:13 PMF Past Medical History Medical History No pertinent past medical history Family History Family History Maternal Grandmother Breast CA Family history of problems with anesthesia: No Surgical History Surgical History H/O gastric sleeve H/O tubal ligation Hx of section History of Problems with Anesthesia: No Social History Social History Patient Tobacco Use Status: Never used Tobacco Are you DNR?: No Advance Directives: No Advance Directives Information Provided: Yes Nutrition Risks: No Nutritional Risk Patient : No Meds Allergies Allergy/AdvReac Type Severity Reaction Status Date / Time No Known Allergies Allergy Verified 06/22/21 14:26 [No Known Allergies*] Exam Airway Mallampati Class: II TM Dist: >3cm Neck ROM: Full Heart: rrr Lungs: cta Assessment and Plan Assessment Anesthesia Assessment: Anesthesia Plan Discussed and Chart Reviewed Final Anesthetic Review Family History of Problems with Anesthesia: No History of Problems with Anesthesia: No NPO: Yes ASA Class: II Final Preanesthetic Review: No Changes in Pt Med Stat, Meds/Allgs Chart Reviewed and Consent Obtained/Reviewed Patient Risk: Intermediate Procedure Risk: Intermediate Anesthetic Plan Anesthetic Plan: GA Disposition: Standard PACU
[2021-07-02] VITALS (7 sets, daily range): BP systolic 105–144; BP diastolic 63–81; PULSE 34–75; RESP 14–18; TEMP 36.2–36.4; O2SAT 96–100; BMI 28.4
[2021-07-02 11:00] LABS: UPreg QC Valid YES; Urine Pregnancy NEGATIVE (NEGATIVE)
--- NOTE | 2021-07-02 11:11 | MHC.SHP ---
Pre-Procedural Eval Section A Date of Service: 07/02/21 The patient is an INPATIENT: No Changes since office visit: No Cold of Flu in the past 2 weeks, No New Medical Problems, No Changes in Medication and No Patient answered all questions The History & Physical has been completed within 30 days and I have reviewed it.: Yes Section B Chief Complaint: bleeding Allergies: Allergies Allergy/AdvReac Type Severity Reaction Status Date / Time No Known Allergies Allergy Verified 06/22/21 14:26 [No Known Allergies*] Plan Diagnosis/Plan: Unchanged I have reviewed the history and physical and performed a pertinent physical examination on my patient. No changes have occurred unless specified.
--- NOTE | 2021-07-02 12:45 | P.BOP_ITS ---
Brief Operative Note Date of Service: 07/02/21 Pre-op diagnosis: Abnormal uterine bleeding Post-op diagnosis: same Procedure: NovaSure Endometrial Ablation Surgeon: Adryan Anderson MD Anesthesia: MAC Was an Field Support Specialist used for this Procedure?: No Estimated blood loss (mL): 0 Pathology: none sent Condition: stable Disposition: PACU
--- NOTE | 2021-07-02 12:45 | W.PM.OPN ---
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 She was prepped and draped in the usual sterile manner. Bimanual exam prior to prepping revealed a mobile, anteverted uterus. A speculum was placed in the vagina and the anterior lip of the cervix was grasped with a single toothed tenaculum and brought forward. Taking care not to enter deep into the uterus, a sound was passed inside to measure the length of the uterus and cervix. This length was found to be 8 cm. Next, Hegar dilator was inserted into the cervical os to measure the cervical length which was 3 cm. This yielded an endometrial cavity length of 6.5 cm. A series of Hegar dilators were then inserted sequentially into the cervical os up to a size of 5 mm. The Novasure device was then opened and tested; the fan deployed easily. The instrument was set to the correct cavity length and introduced into the uterine cavity. The fan was slowly deployed with gentle movements to ensure a snug fit within the cavity. The cavity width read 4.5 cm. The measurements were imported and a cavity check was done. The trumpet was then slid down to the cervix and the device was activated. The total burn time was 94 seconds. The fan was retracted and device removed. The fan was examined and revealed charred tissue. The tenaculum was removed and the cervix examined for hemostasis which was achieved using pressure. Finally the speculum was removed. The patient tolerated the procedure well and was brought to the recovery room in a stable condition. At the end of the procedure all sponges and instruments were counted and correct. The blood loss was minimal and there were no complications.
[2021-07-02] MEDS: oxyCODONE HCl Immed Release 5 MG TABLET PO (13:15)
[2021-07-02] MEDS: Acetaminophen 325 MG TABLET 650 MG PO (13:15)
== END 2021-07-02 14:18 | disposition home or self-care (01) ==
PROVIDERS: PCP Nurse Practitioner Family; Visit Provider Obstetrics & Gynecology
PROC: (CPT 58353; principal; 2021-07-02 13:30)
DX: N93.9 Abnormal uterine and vaginal bleeding, unspecified (principal); Z98.51 Tubal ligation status; Z98.84 Bariatric surgery status; Z79.899 Other long term (current) drug therapy
CPT/HCPCS: 58353; 81025; J1100; J2250; J2405; J3010

== ENCOUNTER → 2021-11-03 11:15 | Outpatient (BNVA) | payer MEDICAID, SELFPAY | PROVIDERS: PCP Nurse Practitioner Family; Visit Provider Physician Assistant Surgical | DX: E66.3 Overweight (principal); Z68.29 Body mass index [BMI] 29.0-29.9, adult; Z98.84 Bariatric surgery status; Z90.3 Acquired absence of stomach [part of] | CPT/HCPCS: 99212 ==

== ENCOUNTER 2021-11-15 12:24 | Outpatient (REF) | payer MEDICAID, SELFPAY ==
[2021-11-15 12:52] LABS: MANUAL DIFF FLAG NO
[2021-11-15 13:34] LABS: Basophils Percent Auto 0.5 % (0-2); Eosinophils Absolute Auto 0.2 X10*3/uL (0.0-0.4); Eosinophils Percent Auto 3.5 % (0-4); Hematocrit 32.4 % (37.0-47.0); Imm Gran Abs Auto 0.03 X10*3/uL (0.00-0.03); Imm Gran Pct Auto 0.7 % (0.0-0.4); Lymphocytes Absolute Auto 1.2 X10*3/uL (1.2-4.9); Lymphocytes Percent Auto 27.3 % (20-40); Mean Corpuscular HGB Conc 30.9 g/dl (31.0-35.0); Mean Corpuscular Hemoglobin 24.6 pg (27.0-33.0); Mean Corpuscular Volume 79.6 fL (80.0-98.0); Mean Platelet Volume 10.5 fL (9.4-12.3); Monocytes Absolute Auto 0.2 X10*3/uL (0.1-1.2); Monocytes Percent Auto 5.1 % (2-11); Neutrophils Absolute Auto 2.7 x10*3/uL (2.0-8.3); Neutrophils Percent Auto 62.9 % (45-73); Platelet Count 327 X10*3/uL (160-400); Red Blood Count 4.07 X10*6/uL (4.20-5.50); Red Cell Distribution Width 19.1 % (11.0-16.0); White Blood Count 4.3 X10*3/uL (4.8-10.8)
[2021-11-15 13:43] LABS: Estimated Average Glucose 100 mg/dL; Hemoglobin A1c % 5.1 %
[2021-11-15 14:03] LABS: Alanine Aminotransferase 8 U/L (0-31); Alkaline Phosphatase 64 U/L (39-117); Anion Gap 15 (12-20); Aspartate Amino Transferase 12 U/L (5-31); Bilirubin Total 0.5 mg/dL (0.0-1.0); Blood Urea Nitrogen 14 mg/dL (9-16); C Reactive Protein 0.09 mg/dL (< or = 0.50); Carbon Dioxide 28 mmol/L (22-29); Chloride 105 mmol/L (96-108); Cholesterol 196 mg/dL; Estimated Glomerular Filt Rate > 60; Glucose Random 89 mg/dL (60-115); HDL Cholesterol 60 mg/dL; Iron 30 mcg/dL (30-160); LDL Cholesterol Calculated 121 mg/dl; Percent Iron Saturation 7 % (15-50); Potassium 4.5 mmol/L (3.3-5.1); Sodium 143 mmol/L (135-145); Total Iron Binding Capacity 402 mcg/dL (228-428); Total Protein 7.1 g/dL (6.5-8.0); Triglycerides 79 mg/dL; Unsaturated Iron Binding 372 ug/dL
[2021-11-15 14:32] LABS: Ferritin 6 ng/mL (10-250); Insulin 6 uU/mL (2-29); TSH reflex Free T4 1.04 uIU/mL (0.32-4.0); Vitamin D 25-OH Total 24.6 ng/mL (>30)
[2021-11-15 14:39] LABS: Folate 7.8 ng/mL (> or = 4.0); Vitamin B12 270 pg/mL (200-900)
[2021-11-17 11:02] LABS: Calcium (PTHI) 9.2 mg/dL (8.6-10.2); PTHI 44 pg/mL (16-77)
[2021-11-18 16:17] LABS: Zinc 57 mcg/dL (60-130)
[2021-11-19 11:51] LABS: Vitamin B1 9 nmol/L (8-30)
[2021-11-19 21:42] LABS: Vitamin A 51 mcg/dL (38-98)
== END 2021-11-15 12:25 | disposition home or self-care (01) ==
LOC: HO.LAB 12:24
PROVIDERS: PCP Nurse Practitioner Family; Visit Provider Physician Assistant Surgical
DX: Z90.3 Acquired absence of stomach [part of] (principal)
CPT/HCPCS: 36415; 80053; 80061; 82306; 82607; 82728; 82746; 83036; 83525; 83540; 83970; 84425; 84443; 84590; 84630; 85025; 86140

== ENCOUNTER → 2021-12-15 10:02 | Outpatient (BNVA) | payer MEDICAID, SELFPAY | PROVIDERS: PCP Nurse Practitioner Family; Visit Provider Physician Assistant Surgical | DX: E66.9 Obesity, unspecified (principal); Z90.3 Acquired absence of stomach [part of]; Z68.30 Body mass index [BMI] 30.0-30.9, adult | CPT/HCPCS: 99212 ==

== ENCOUNTER 2022-01-12 12:48 | Emergency (ER) | payer MEDICAID, SELFPAY ==
--- NOTE | ~2022-01-12 | XR_ITS ---
EXAMINATION: XR CHEST CLINICAL INFORMATION: Chest pain COMPARISON: 06/19/2018 TECHNIQUE: Frontal view of the chest was obtained. FINDINGS: No significant abnormality is noted involving the heart, lungs, mediastinum, bony thorax or soft tissues. XR/XR chest 1V IMPRESSION: Unremarkable examination with no interval change.
--- NOTE | 2022-01-12 12:54 | ECG_ITS ---
Test Reason : cp Blood Pressure : / mmHG Vent. Rate : 075 BPM Atrial Rate : 075 BPM P-R Int : 166 ms QRS Dur : 084 ms QT Int : 404 ms P-R-T Axes : 058 -17 000 degrees QTc Int : 451 ms Normal sinus rhythm with sinus arrhythmia Minimal voltage criteria for LVH, may be normal variant ( R in aVL ) Nonspecific ST abnormality Lateral leads Abnormal ECG When compared with ECG of 05-SEP-2018 10:33, Vent. rate has increased BY 25 BPM Nonspecific T wave abnormality now evident in Anterior leads QT has lengthened Referred By: Generic ED Physician Electronically Signed By:APOLINAR GEORGE MD
[2022-01-12 13:22] VITALS: BP 136/61; PULSE 65; RESP 16; TEMP 36; O2SAT 100; BMI 29.1
[2022-01-12 15:13] LABS: MANUAL DIFF FLAG NO
[2022-01-12 15:17] LABS: Basophils Percent Auto 0.3 % (0-2); Eosinophils Absolute Auto 0.2 X10*3/uL (0.0-0.4); Eosinophils Percent Auto 3.2 % (0-4); Hemoglobin 10.5 g/dl (12.0-16.0); Imm Gran Abs Auto 0.01 X10*3/uL (0.00-0.03); Imm Gran Pct Auto 0.2 % (0.0-0.4); Lymphocytes Absolute Auto 1.5 X10*3/uL (1.2-4.9); Lymphocytes Percent Auto 25.8 % (20-40); Mean Corpuscular HGB Conc 30.9 g/dl (31.0-35.0); Mean Corpuscular Hemoglobin 24.2 pg (27.0-33.0); Mean Corpuscular Volume 78.3 fL (80.0-98.0); Monocytes Absolute Auto 0.4 X10*3/uL (0.1-1.2); Monocytes Percent Auto 6.8 % (2-11); Neutrophils Absolute Auto 3.8 x10*3/uL (2.0-8.3); Neutrophils Percent Auto 63.7 % (45-73); Platelet Count 306 X10*3/uL (160-400); Red Blood Count 4.34 X10*6/uL (4.20-5.50); Red Cell Distribution Width 16.3 % (11.0-16.0); White Blood Count 5.9 X10*3/uL (4.8-10.8)
[2022-01-12 15:42] LABS: Anion Gap 13 (12-20); Blood Urea Nitrogen 13 mg/dL (9-16); Carbon Dioxide 25 mmol/L (22-29); Chloride 105 mmol/L (96-108); Creatinine Clr Calc Pharmacy 93.6; Estimated Glomerular Filt Rate > 60; Glucose Random 98 mg/dL (60-115); Potassium 4.2 mmol/L (3.3-5.1); Sodium 139 mmol/L (135-145)
[2022-01-12 15:49] LABS: Troponin-I High Sensitivity < 3.5 ng/L (<3.5-17.0)
[2022-01-12 18:19] VITALS: BP 136/64; PULSE 50; RESP 19; TEMP 36.6; O2SAT 99
--- OUTSIDE RECORDS SUMMARY | 2022-01-12 22:10 | XMS_ITS | Continuity of Care Document ---
:1975 Author Organization [facility] Adult Address [address] [place] [address]- Care Team Providers Name Role Phone Lee DE PAZ, Brie Primary Care Physician [phone] Encounter [facility] R [id number] Date(s): 12/01/21 - 12/31/21 [facility] [address] [place] [phone]- Allergies, Adverse Reactions, Alerts No Known Allergies Immunizations Given and Recorded Vaccine Date Status Refusal Reason influenza virus vaccine, inactivated1 12/27/17 Given influenza virus vaccine, inactivated 01/06/17 Given influenza virus vaccine, inactivated 04/05/13 Given tetanus/diphtheria/pertussis, acel(Tdap)2 06/05/11 Given 1Result Comment: [12/27/2017] [facility][NOTE 3]: [id number] Note: Pt received written information regarding Tdap (dated 04/12/2011) and verbally consented to receiving it today. Medications Contrave 8 mg-90 mg oral tablet, extended release See Instructions, 1 tab daily x 1 wk, 1 tab BID 2nd wk, 2 tab in am and 1 tab in pm on 3rd wk and then 2 tabs BID, # 70 tablet, 0 Refills, Maintenance, 05/09/18 14:57:39 EST, ER Tablet, 1 tab daily x 1wk, 1 tab BID 2nd wk, 2 tab in am and 1 tab in pm... Start Date: 05/09/18 Status: Orderedferrous sulfate 325 mg oral enteric coated tablet 325 mg, 1, tablet, By Mouth, Daily, # 90 tablet, Refills 0, Tot. Refills 0, Maintenance, 12/08/21 8:17:00 EDT, Route to Pharmacy Electronically, [facility] #[id number], Partial fill upon patient request if the prescription is for a schedule II op... Start Date: 12/08/21 Status: Ordered Problem List Condition Confirmation Course Effective Dates Status Health Stat us Informant Cerclage of cervix Confirmed Active during by vaginal approach Obese class I Confirmed Active Social History Social History Type Response Smoking Status Never smoker entered on: 10/29/17 Sex Female Patient Care team information PersonnelName: Brie Howard MD Address: Address: [address] [place] [id number]
--- OUTSIDE RECORDS SUMMARY | 2022-01-12 22:10 | XMS_ITS | Continuity of Care Document ---
:1975 Author Organization [facility] Adult Address [address] [place] [address]- Care Team Providers Name Role Phone Lee DE PAZ, Brie Primary Care Physician [phone] Encounter [facility] Date(s): 12/22/20 - 01/21/21 [facility] [address] [place] [id number] Allergies, Adverse Reactions, Alerts Substance Reaction Severity Status NKA Active Immunizations Given and Recorded Vaccine Date Status Refusal Reason influenza virus vaccine, inactivated1 12/27/17 Given influenza virus vaccine, inactivated 01/06/17 Given influenza virus vaccine, inactivated 04/05/13 Given tetanus/diphtheria/pertussis, acel(Tdap)2 06/05/11 Given 1Result Comment: [12/27/2017] [facility]: [id number] Note: Pt received written information regarding Tdap [...] tab in pm... Start Date: 05/09/18 Status: Ordered Problem List Condition Effective Dates Status Health Status Informant Cerclage of cervix during by Active vaginal approach(Confirmed) Social History Social History Type Response Smoking Status Never smoker entered on: 10/29/17 Sex Female
--- OUTSIDE RECORDS SUMMARY | 2022-01-12 22:10 | XMS_ITS | Continuity of Care Document ---
:1975 Author Organization [facility] Adult Address [address] [place] [address]- Care Team Providers Name Role Phone Lee DE PAZ, Brie Primary Care Physician Encounter [facility] [id number] Date(s): 12/06/21 - 12/13/21 [facility] [address] [place] [id number]- Encounter Diagnosis Left knee pain (Discharge Diagnosis) - 12/06/21 Hand pain (Discharge Diagnosis) - 12/06/21 Fatigue (Discharge Diagnosis) - 12/06/21 Paresthesia of left foot (Discharge Diagnosis) - 12/06/21 Attending Physician: Selena Franz Allergies, Adverse Reactions, Alerts No Known Allergies Immunizations Given and Recorded Vaccine Date Status Refusal Reason influenza virus vaccine, inactivated1 12/27/17 Given influenza virus vaccine, inactivated 01/06/17 Given influenza virus vaccine, inactivated 04/05/13 Given tetanus/diphtheria/pertussis, acel(Tdap)2 06/05/11 Given 1Result Comment: [12/27/2017] [facility]: [id number] Note: Pt received written information regarding Tdap [...] 12/08/21 8:17:00 EDT, Route to Pharmacy Electronically, [facility] #[id number], Partial fill upon patient request if the prescription is for a schedule II op... Start Date: 12/08/21 Status: Ordered Problem List Condition Effective Dates Status Health Status Informant Cerclage of cervix during by Active vaginal approach(Confirmed) Obese class I(Confirmed) Active Diagnosis Diagnosis Type Effective Dates Health Clinical Infor mant Status Service Left knee pain Discharge 12/06/21 Diagnosis Hand pain Discharge 12/06/21 Diagnosis Fatigue Discharge 12/06/21 Diagnosis Paresthesia of Discharge 12/06/21 left foot Diagnosis Procedures Procedure Date Related Diagnosis Body Site Status Endometrial ablation 07/02/21 Complet ed Vital Signs Most recent to oldest [Reference Range]: 1 Height 164 cm (12/06/21 9:54 AM) Weight 82.7 kg (12/06/21 9:54 AM) Oxygen Saturation [94-100 %] 100 % (12/06/21 9:54 AM) Pulse Rate [55-90 bpm] 46 bpm *L* (12/06/21 9:54 AM) Body Mass Index [18.5-24.99] 30.75 *>HHI* (12/06/21 9:54 AM) Blood Pressure [90-138/55-84 mm Hg] 120/66 mm Hg (12/06/21 9:54 AM) Respiratory Rate [16-30 br/min] 16 br/min (12/06/21 9:54 AM) Temperature [96.8-100.4 DegF] 97.6 DegF (12/06/21 9:54 AM) Mode of Delivery (Oxygen) Room air (12/06/21 9:54 AM) Blood pressure sites Arm, right (12/06/21 9:54 AM) Temperature Route Temporal (12/06/21 9:54 AM) Weight Obtained Via Standing scale (12/06/21 9:54 AM) Social History Social History Type Response Smoking Status Never smoker entered on: 10/29/17 Sex Female Care Team PersonnelName: Brie Howard MD Address: [address] [place] [address]- [place]
== END 2022-01-12 22:28 | disposition left against medical advice (07) ==
LOC: HO.ED 22:09
PROVIDERS: Emergency Provider Emergency Medicine; PCP Nurse Practitioner Family
DX: R07.89 Other chest pain (principal); Z79.899 Other long term (current) drug therapy
CPT/HCPCS: 36415; 71045; 80048; 84484; 85025; 93005; 99283

== ENCOUNTER → 2022-02-16 10:33 | Outpatient (BNVA) | payer MEDICAID, SELFPAY | PROVIDERS: PCP Nurse Practitioner Family; Visit Provider Physician Assistant Surgical | DX: E66.9 Obesity, unspecified (principal); Z90.3 Acquired absence of stomach [part of]; Z68.31 Body mass index [BMI] 31.0-31.9, adult | CPT/HCPCS: 99212 ==

== ENCOUNTER → 2022-04-05 13:04 | Outpatient (BNVA) | payer MEDICAID, SELFPAY | PROVIDERS: PCP Nurse Practitioner Family; Visit Provider Physician Assistant Surgical | DX: E66.9 Obesity, unspecified (principal); R10.9 Unspecified abdominal pain; Z68.31 Body mass index [BMI] 31.0-31.9, adult; Z90.3 Acquired absence of stomach [part of] | CPT/HCPCS: 99212 ==

== ENCOUNTER 2022-12-08 09:36 | Emergency (ER) | payer OTHER, SELFPAY ==
[2022-12-08 09:42] VITALS: BP 112/58; PULSE 55; RESP 19; TEMP 36.6; O2SAT 99; BMI 34.1
--- NOTE | 2022-12-08 10:01 | MHC.EDTECH ---
Labs and urine collected and sent
[2022-12-08 10:04] LABS: MANUAL DIFF FLAG NO
[2022-12-08 10:05] LABS: Appearance Urine Clear; Basophils Percent Auto 0.3 % (0-2); Color Urine Yellow; Eosinophils Absolute Auto 0.2 X10*3/uL (0.0-0.4); Eosinophils Percent Auto 2.9 % (0-4); Glucose Urine UA Negative (Negative); Hematocrit 33.2 % (37.0-47.0); Hemoglobin 10.4 g/dl (12.0-16.0); Imm Gran Abs Auto 0.03 X10*3/uL (0.00-0.03); Imm Gran Pct Auto 0.5 % (0.0-0.4); Leukocyte Esterase Urine Negative (Negative); Lymphocytes Absolute Auto 1.4 X10*3/uL (1.2-4.9); Lymphocytes Percent Auto 21.9 % (20-40); Mean Corpuscular HGB Conc 31.3 g/dl (31.0-35.0); Mean Corpuscular Hemoglobin 24.4 pg (27.0-33.0); Mean Corpuscular Volume 77.9 fL (80.0-98.0); Monocytes Absolute Auto 0.4 X10*3/uL (0.1-1.2); Monocytes Percent Auto 6.7 % (2-11); Neutrophils Absolute Auto 4.2 x10*3/uL (2.0-8.3); Neutrophils Percent Auto 67.7 % (45-73); Nitrite Urine Negative (Negative); PH >= 9.0 (5.0-9.0); Platelet Count 299 X10*3/uL (160-400); Red Blood Count 4.26 X10*6/uL (4.20-5.50); Red Cell Distribution Width 16.6 % (11.0-16.0); Specific Gravity - Urine 1.015 (1.005-1.025); Urine Blood Negative (Negative); Urine Ketones Negative (Negative); Urine Protein Negative (Neg-Trace); White Blood Count 6.2 X10*3/uL (4.8-10.8)
[2022-12-08 10:07] LABS: UPreg QC Valid YES; Urine Pregnancy NEGATIVE (NEGATIVE)
[2022-12-08 10:29] LABS: Alanine Aminotransferase 9 U/L (0-31); Albumin Level 3.9 g/dL (3.5-5.0); Alkaline Phosphatase 74 U/L (39-117); Anion Gap 12 (12-20); Aspartate Amino Transferase 13 U/L (5-31); Bilirubin Direct 0.1 mg/dL (0.0-0.5); Bilirubin Total 0.3 mg/dL (0.0-1.0); Blood Urea Nitrogen 11 mg/dL (9-16); Calcium 8.9 mg/dL (8.4-10.2); Carbon Dioxide 24 mmol/L (22-29); Chloride 108 mmol/L (96-108); Creatinine Clr Calc Pharmacy 96.6; Estimated Glomerular Filt Rate > 60; Glucose Random 92 mg/dL (60-115); Lipase 29 U/L (8-78); Potassium 4.1 mmol/L (3.3-5.1); Sodium 140 mmol/L (135-145); Total Protein 7.4 g/dL (6.5-8.0)
[2022-12-08 13:35] VITALS: BP 134/50; PULSE 50; RESP 19; TEMP 36.6; O2SAT 98
--- NOTE | 2022-12-08 13:35 | ED_ITS ---
HPI - General Adult General Chief complaint: Abdominal Pain Stated complaint: lower abd pain Time Seen by Provider: 12/08/22 15:31 Source: patient Mode of arrival: ambulatory Limitations: no limitations History of Present Illness HPI narrative: 47-year-old female came in for evaluation of lower pelvic pain bilaterally been going on for few months getting worse over the past month patient just changed her OBGYN physician and looking for a female physician, pain is intermittent no clear exacerbating factor or relieving factor not associated with vaginal bleeding or vaginal discharge. No frequency urination, no dysuria, no hematuria, no fever, no chills, no nausea, no vomiting, no upper abd. pain. Related Data Home Medications Medication Instructions Recorded Confirmed meloxicam 15 mg tablet 15 mg PO DAILY 04/05/22 04/05/22 Previous Rx's Medication Instructions Recorded cholecalciferol (vitamin D3) 25 25 mcg PO DAILY #90 caps 11/30/21 mcg (1,000 unit) capsule iron,carbonyl 65 mg-vitamin C 125 1 tab PO BEDTIME #90 tabs 12/15/21 mg tablet,delayed release (Vitron-C) zinc gluconate 30 mg tablet 30 mg PO .qod #30 tabs 12/20/21 pantoprazole 40 mg tablet,delayed 40 mg PO DAILY #90 tabs 04/05/22 release sucralfate 100 mg/mL oral 10 ml PO BID #414 mL 04/05/22 suspension (Carafate) Allergies Allergy/AdvReac Type Severity Reaction Status Date / Time No Known Allergies Allergy Verified 12/08/22 09:42 [No Known Allergies*] Review of Systems 2 Review of Systems: All other systems are reviewed and are negative Constitutional: Reports as per HPI and Reports no additional constitutional complaints Eyes: Reports as per HPI and Reports no additional eye complaints Reports system reviewed and no additional complaints, except as documented Cardiovascular: Reports as per HPI and Reports no additional cardiovascular complaints Respiratory: Reports as per HPI and Reports no additional respiratory complaints Gastrointestinal: Reports as per HPI and Reports no additional gastrointestinal complaints Genitourinary: Reports no additional female genitourinary complaints Musculoskeletal: Reports no additional musculoskeletal complaints Skin/Breast: Reports system reviewed and no additional complaints, except as docu Psychiatric: Reports no additional psychiatric complaints Endocrine: Reports no additional endocrine complaints Hematologic/Lymphatic: Reports no additional hematologic/lymphatic complaints Allergic/Immunologic: Reports no additional allergic/immunologic complaints Reports system reviewed and no additional complaints, except as documented and Reports Abnormal speech present [facility] Past Medical History Medical History No pertinent past medical history Surgical History H/O tubal ligation Hx of section H/O gastric sleeve Family History Family History Maternal Grandmother Breast CA Social History Social History Alcohol intake: never Patient Tobacco Use Status: Never used Tobacco Smoked in Last 30 Days: No Use of substances other than those prescribed or required for medical reasons: No Advance Directives: No Advance Directives Information Provided: No Patient : No Physical Exam ED Vital Signs: Vital Signs - 24 hr 12/08/22 09:42 12/08/22 13:35 12/08/22 15:42 Temperature 98 F 98 F 98.4 F Pulse Rate 55 50 48 L Respiratory Rate 19 19 14 Blood Pressure 112/58 L 134/50 L 105/60 Pulse Oximetry 99 98 100 Oxygen Delivery Method Room Air Room Air Room Air BMI result Body Mass Index 34.1 Vital signs have been reviewed and appear to be correct. Blood pressure elevated. Heart rate normal. Respiratory rate normal. Temperature normal. Oxygen saturation normal. Appearance: Alert. Oriented X3. No acute distress. Head: Normal external exam. Normocephalic. Atraumatic. No March signs noted. No raccoon eyes noted Eyes: PERRLA. EOMI. Conjunctiva and sclera normal. Eyelids normal. ENT: TM's Normal. Pharynx normal. Uvula midline. Moist mucous membranes. No trismus noted. No drooling noted. No muffled voice noted. Neck: Normal inspection. Neck supple. FROM. No adenopathy. Thyroid Normal. No meningeal signs. No neck mass noted. CVS: Normal heart rate and rhythm. Heart sound normal. No murmurs noted. Pulses normal throughout. Respiratory: No respiratory distress. Painless inspiration. Breath sounds normal. No wheezes/rales/rhonchi noted. Chest nontender. No accessory muscle usage noted or decreased air movement noted. Abdomen: Soft and nontender. Bowel sounds normal in all 4 quadrants. No distention noted. No organomegaly noted. No visible injury noted. Pelvic exam: Patient declines exam was deferred for her OBGYN. Back: No CVA tenderness. Full range of motion noted. Skin: Skin warm and dry. Normal skin color. Normal skin turgor. No rashes/lesions/lacerations noted. Extremities: No lower extremity edema. Extremities exhibit normal range of motion. Extremities nontender. Neuro: Oriented X 3. Cranial nerve exam: II-XII are grossly intact No motor deficit. No sensory deficit. Reflexes normal. Course Course Course Narrative: This is a rapid medical exam: Additional HPI, ROS, PE not included below will be deferred to primary provider. Patient initially triaged prior to this provider's arrival. RME now being done during patient reassessment. Patient is a 47-year-old female with history of sleeve gastrectomy presenting to the ED with complaint of lower abdominal pain worsening over the past month. Denies any heavy abdominal bleeding. Rates pain at 8/10. Denies any urinary symptoms, back, or flank pain. History of similar pain in the past. Had pelvic MRI in 2021 which showed small amount of simple-appearing free fluid in the pelvis. Reevaluation(s) Reevaluation #1: Acute on chronic pelvic pain, patient appeared in no distress, abdominal exam is benign, labs are unremarkable. Patient in the process of finding OBGYN was instructed to follow-up and have an annual pelvic exam with her. Time: 16:33 Medical Decision Making Differential Diagnosis Differential Diagnoses: The differential diagnosis associated with the presentation includes ( Pancreatitis, colitis, diverticulitis, ovarian cysts, pre menstruation syndrome, severe anemia, electrolyte abnormality, UTI, .) Admission/Observation Consideration of admission/observation: Escalation of care including admission/observation considered Lab Data MDM Lab Attestation statement: I reviewed the patient's lab results. 12/08/22 09:58 12/08/22 09:58 Labs: Lab Results 12/08/22 Range/Units 09:58 WBC 6.2 (4.8-10.8) X10*3/uL RBC 4.26 (4.20-5.50) X10*6/uL Hgb 10.4 L (12.0-16.0) g/dl Hct 33.2 L (37.0-47.0) % MCV 77.9 L (80.0-98.0) fL MCH 24.4 L (27.0-33.0) pg MCHC 31.3 (31.0-35.0) g/dl RDW 16.6 H (11.0-16.0) % Plt Count 299 (160-400) X10*3/uL MPV 10.0 (9.4-12.3) fL Immature Gran % (Auto) 0.5 H (0.0-0.4) % Neut % (Auto) 67.7 (45-73) % Lymph % (Auto) 21.9 (20-40) % Bryan % (Auto) 6.7 (2-11) % Eos % (Auto) 2.9 (0-4) % Baso % (Auto) 0.3 (0-2) % Lymph # (Auto) 1.4 (1.2-4.9) X10*3/uL Bryan # (Auto) 0.4 (0.1-1.2) X10*3/uL Eos # (Auto) 0.2 (0.0-0.4) X10*3/uL Baso # (Auto) 0.0 (0.0-0.2) X10*3/uL Abs Immat Gran (auto) 0.03 (0.00-0.03) X10*3/uL Absolute Neuts (auto) 4.2 (2.0-8.3) x10*3/uL Absolute Nucleated RBC 0.000 (0.0-0.012) X10*3/uL Nucleated RBC % (auto) 0.0 (0.0-0.2) /100WBC Sodium 140 (135-145) mmol/L Potassium 4.1 (3.3-5.1) mmol/L Chloride 108 (96-108) mmol/L Carbon Dioxide 24 (22-29) mmol/L Anion Gap 12 (12-20) BUN 11 (9-16) mg/dL Creatinine 0.82 (0.5-1.4) mg/dL Estim Creat Clear Calc 96.6 Estimated GFR > 60 Random Glucose 92 (60-115) mg/dL Calcium 8.9 (8.4-10.2) mg/dL Total Bilirubin 0.3 (0.0-1.0) mg/dL Direct Bilirubin 0.1 (0.0-0.5) mg/dL AST 13 (5-31) U/L ALT 9 (0-31) U/L Alkaline Phosphatase 74 (39-117) U/L Total Protein 7.4 (6.5-8.0) g/dL Albumin 3.9 (3.5-5.0) g/dL Lipase 29 (8-78) U/L Urine Color Yellow Urine Appearance Clear Urine pH >= 9.0 (5.0-9.0) Ur Specific [facility] 1.015 (1.005-1.025) Urine Protein Negative (Neg-Trace) mg/dL Urine Glucose (UA) Negative (Negative) mg/dL Urine Ketones Negative (Negative) mg/dL Urine Blood Negative (Negative) Urine Nitrite Negative (Negative) Ur Leukocyte Esterase Negative (Negative) Urine Test NEGATIVE (NEGATIVE) Discharge Plan Discharge Clinical Impression: Pelvic pain Patient Disposition: Home, Self-Care Instructions: Pelvic Pain (ED) Additional Instructions: Follow-up with your OBGYN To have an annual exam. Prescriptions: No Action cholecalciferol (vitamin D3) 25 mcg (1,000 unit) capsule 25 mcg PO DAILY Qty: 90 3RF zinc gluconate 30 mg tablet 30 mg PO .qod Qty: 30 3RF meloxicam 15 mg tablet 15 mg PO DAILY pantoprazole 40 mg tablet,delayed release (DR/EC) 40 mg PO DAILY Qty: 90 3RF sucralfate [Carafate] 100 mg/mL suspension 10 ml PO BID Qty: 414 3RF Vitron-C 65 mg iron- 125 mg tablet,delayed release (DR/EC) 1 tab PO BEDTIME Qty: 90 3RF
[2022-12-08 15:42] VITALS: BP 105/60; PULSE 48; RESP 14; TEMP 36.9; O2SAT 100
== END 2022-12-08 16:44 | disposition home or self-care (01) ==
PROVIDERS: Emergency Provider Emergency Medicine; PCP Nurse Practitioner Family
DX: R10.2 Pelvic and perineal pain (principal); Z90.3 Acquired absence of stomach [part of]; Z98.51 Tubal ligation status
CPT/HCPCS: 36415; 80048; 80076; 81003; 81025; 83690; 85025; 99283; 99284

== ENCOUNTER 2023-01-18 16:26 | Emergency (ER) | payer OTHER, SELFPAY ==
--- NOTE | ~2023-01-18 | CT_ITS ---
EXAMINATION: CT ABDOMEN AND PELVIS WITH CONTRAST CLINICAL INFORMATION: Right-sided abdominal pain with history of bariatric surgery in March 2022 COMPARISON: CT abdomen pelvis 06/11/2021 TECHNIQUE: Multidetector volumetric images were obtained from the superior aspect of the liver through the pubic symphysis following administration 85 mL of Omnipaque 350 intravenous contrast. Sagittal and coronal reformatted images were obtained on the technologist's workstation. Oral contrast: No This CT examination was performed using dose optimization techniques as appropriate, variously including the following: *Automated exposure control *Adjustment of mA and/or kV according to patient size (this includes techniques or standardized protocols for targeted exams where dose is matched to indication/reason for exam; i.e. extremities or head) *Use of iterative reconstruction technique DLP: 736 mGy-cm FINDINGS: LUNG BASES: The visualized lung bases are unremarkable. LIVER, GALLBLADDER, AND BILIARY TREE: The liver is normal in size, shape, and attenuation. There is a tiny 3 mm hypoattenuating area in the right lobe of the liver which was not apparent on prior study. This either represents a tiny cyst or possibly a small hemangioma that was isoattenuating previously. No worrisome focal hepatic lesion or biliary ductal dilatation is present. The gallbladder is unremarkable with no evidence of radiopaque gallstones, gallbladder wall thickening, or obvious pericholecystic inflammatory changes. PANCREAS: Unremarkable. SPLEEN: Spleen has decreased in size since the prior study when it was mildly enlarged at 12.9 cm now 12.2 cm. ADRENAL GLANDS: Unremarkable. KIDNEYS AND URETERS: The kidneys are normal in size, shape, and attenuation. There is a punctate nonobstructing calcification seen in the left upper pole measuring about 2 mm unchanged from prior (3:29 compare prior 3:28). There is some mild renal cortical thinning present in the upper pole behind the stone. No hydronephrosis, hydroureter, or additional calculi seen. No perinephric stranding. BLADDER: Unremarkable. GASTROINTESTINAL TRACT: There are changes of gastric bypass. A small hiatal hernia is present. The small and large bowel are unremarkable. The appendix is unremarkable. ABDOMINAL WALL: No significant hernia is appreciated. LYMPH NODES: Normal. VASCULAR: Unremarkable. PELVIC VISCERA: An anteverted uterus is present. Fallopian tube occlusion devices are present. No free pelvic fluid is seen. An abnormal adnexal mass is not present. OSSEOUS STRUCTURES: Unremarkable. CT/CT abdomen pelvis w IV con IMPRESSION: 1. A cause for the patient's abdominal pain has not been found. 2. Incidental note made of gastric bypass changes, small hiatal hernia, tiny 3 mm non worrisome hypoattenuating area in the liver which either represents a tiny cyst or possibly a small hemangioma. 3. Spleen has decreased in size since the prior study. 4. Stable punctate nonobstructing left upper pole renal calculus. 5. Other incidental findings as described above. Fleischner guidelines were followed.
[2023-01-18 17:06] VITALS: BP 134/50; PULSE 67; RESP 16; TEMP 36.9; O2SAT 97; BMI 35.0
[2023-01-18 17:31] LABS: Basophils Percent Auto 0.3 % (0-2); Eosinophils Absolute Auto 0.2 X10*3/uL (0.0-0.4); Eosinophils Percent Auto 2.8 % (0-4); Hematocrit 34.3 % (37.0-47.0); Hemoglobin 10.8 g/dl (12.0-16.0); Imm Gran Abs Auto 0.02 X10*3/uL (0.00-0.03); Imm Gran Pct Auto 0.3 % (0.0-0.4); Lymphocytes Absolute Auto 1.4 X10*3/uL (1.2-4.9); Lymphocytes Percent Auto 20.3 % (20-40); MANUAL DIFF FLAG NO; Mean Corpuscular HGB Conc 31.5 g/dl (31.0-35.0); Mean Corpuscular Hemoglobin 24.4 pg (27.0-33.0); Mean Corpuscular Volume 77.6 fL (80.0-98.0); Mean Platelet Volume 10.9 fL (9.4-12.3); Monocytes Absolute Auto 0.5 X10*3/uL (0.1-1.2); Monocytes Percent Auto 6.5 % (2-11); Neutrophils Absolute Auto 4.9 x10*3/uL (2.0-8.3); Neutrophils Percent Auto 69.8 % (45-73); Platelet Count 387 X10*3/uL (160-400); Red Blood Count 4.42 X10*6/uL (4.20-5.50); White Blood Count 7.1 X10*3/uL (4.8-10.8)
[2023-01-18 17:46] LABS: Appearance Urine Clear; Color Urine Yellow; Glucose Urine UA Negative (Negative); Leukocyte Esterase Urine Trace (Negative); Nitrite Urine Negative (Negative); PH 5.5 (5.0-9.0); Specific Gravity - Urine 1.025 (1.005-1.025); UMIC TRIGGER UACC YES; Urine Blood Negative (Negative); Urine Ketones Trace mg/dL (Negative); Urine Protein Negative (Neg-Trace)
[2023-01-18 17:48] LABS: Alanine Aminotransferase 10 U/L (0-31); Alkaline Phosphatase 77 U/L (39-117); Anion Gap 14 (12-20); Aspartate Amino Transferase 15 U/L (5-31); Bilirubin Direct 0.1 mg/dL (0.0-0.5); Bilirubin Total 0.3 mg/dL (0.0-1.0); Blood Urea Nitrogen 13 mg/dL (9-16); Carbon Dioxide 22 mmol/L (22-29); Chloride 108 mmol/L (96-108); Creatinine Clr Calc Pharmacy 96.7; Estimated Glomerular Filt Rate > 60; Glucose Random 111 mg/dL (60-115); Lipase 41 U/L (8-78); Potassium 4.3 mmol/L (3.3-5.1); Sodium 140 mmol/L (135-145); Total Protein 7.7 g/dL (6.5-8.0)
[2023-01-18 17:48] LABS: Bacteria Urine None Seen (None Seen); Hyaline Casts Urine 0-2 /LPF (0-2); WBC Urine 0-5 /HPF (0-5)
[2023-01-18 19:50] VITALS: BP 108/57; PULSE 60; RESP 16; TEMP 36.8; O2SAT 100
--- NOTE | 2023-01-18 20:03 | ED_ITS ---
HPI - Abdominal Pain General Chief Complaint: Abdominal Pain Stated Complaint: R side pain 3 1/2 days where appendix is Time Seen by Provider: 01/18/23 19:47 Source: patient Mode of arrival: ambulatory History of Present Illness HPI narrative: 47-year-old female who presents with 4 days of worsening localized right lower quadrant discomfort that is not been associated with any fever, chills, nausea, vomiting, history of renal colic, dysuria, patient describes it as waxing and waning and denies any improving or worsening symptoms. Patient states her last bowel movement was this morning and still menstruates. With an LMP of last month. Related Data Home Medications Medication Instructions Recorded Confirmed meloxicam 15 mg tablet 15 mg PO DAILY 04/05/22 04/05/22 Previous Rx's Medication Instructions Recorded cholecalciferol (vitamin D3) 25 25 mcg PO DAILY #90 caps 11/30/21 mcg (1,000 unit) capsule iron,carbonyl 65 mg-vitamin C 125 1 tab PO BEDTIME #90 tabs 12/15/21 mg tablet,delayed release (Vitron-C) zinc gluconate 30 mg tablet 30 mg PO .qod #30 tabs 12/20/21 pantoprazole 40 mg tablet,delayed 40 mg PO DAILY #90 tabs 04/05/22 release sucralfate 100 mg/mL oral 10 ml PO BID #414 mL 04/05/22 suspension (Carafate) Allergies Allergy/AdvReac Type Severity Reaction Status Date / Time No Known Allergies Allergy Verified 12/08/22 09:42 [No Known Allergies*] Review of Systems Review of Systems Pertinent positives and negatives as stated in HPI PMFSH Past Medical History Source: nursing notes reviewed Medical History No pertinent past medical history Surgical History H/O tubal ligation Hx of section H/O gastric sleeve Family History Family History Maternal Grandmother Breast CA Social History Social History Alcohol intake: never Patient Tobacco Use Status: Never used Tobacco Smoked in Last 30 Days: No Use of substances other than those prescribed or required for medical reasons: No Advance Directives: No Advance Directives Information Provided: No Patient : No Physical Exam ED Vital Signs: Vital Signs - 24 hr 01/18/23 17:06 01/18/23 19:50 01/18/23 22:15 Temperature 98.5 F 98.3 F 98.3 F Pulse Rate 67 60 70 Respiratory Rate 16 16 18 Blood Pressure 134/50 L 108/57 L 104/56 L Pulse Oximetry 97 100 100 Oxygen Delivery Method Room Air Room Air Room Air BMI result Body Mass Index 35.0 VITAL SIGNS: Reviewed. GENERAL: Well developed, well nourished, in no acute distress. HEAD: Normocephalic/atraumatic EYES: PERRLA, EOMI EARS: Ext canals without abnormality NOSE: Nares patent bilateral OROPHARYNX: no oral lesions noted, posterior pharynx clear NECK: Supple, no adenopathy LUNGS: Normal breath sounds. No adventitious sounds or accessory muscle use. SpO2<100> CARDIOVASCULAR: Regular rate and rhythm without noted murmurs ABDOMEN: Soft, Localized right lower quadrant discomfort without noted erythema or induration, no rebound, non-distended with bowel sounds. MUSCULOSKELETAL: No tenderness, deformities, or effusions noted on gross inspection. EXTREMITIES: No cyanosis, clubbing or edema. SKIN: Inspection of the skin reveals no rashes NEUROLOGIC: Alert and oriented x 4. Strength and sensation to light touch were grossly intact x 4. Medical Decision Making Medical Decision Making MDM Narrative: Is a 47-year-old female with history and clinical presentation, DDX: Renal colic, not felt to be appendicitis or cholecystitis, small likelihood of SBO, possible UTI. I reviewed all investigations and hematologic indices are negative for leukocytosis or left shift, no thrombocytopenia and there is a stable microcytic anemia. Chemistry indices are grossly within normal limits without evidence of ALYSA and no electrolyte or liver enzyme abnormalities. Urinalysis shows some trace leukocyte esterase but no evidence of wbc's or bacteria and so will not treat as a urinary tract infection. Also, patient denies urinary symptoms. CT scan negative for acute intra-abdominal pathologies and otherwise my interpretation is in agreement with radiology's impression. All results and findings discussed with her at bedside and she was encouraged to use [id number] Tylenol/ibuprofen as needed for pain control. Differential Diagnosis Differential Diagnoses: The differential diagnosis associated with the presentation includes Please see the discussion above Admission/Observation Consideration of admission/observation: Escalation of care including admission/observation considered Please see the discussion above Lab Data MDM Lab Attestation statement: I reviewed the patient's lab results. Please see the discussion above 01/18/23 17:26 01/18/23 17:26 Labs: Lab Results 01/18/23 01/18/23 Range/Units 17:26 17:39 WBC 7.1 (4.8-10.8) X10*3/uL RBC 4.42 (4.20-5.50) X10*6/uL Hgb 10.8 L (12.0-16.0) g/dl Hct 34.3 L (37.0-47.0) % MCV 77.6 L (80.0-98.0) fL MCH 24.4 L (27.0-33.0) pg MCHC 31.5 (31.0-35.0) g/dl RDW 17.0 H (11.0-16.0) % Plt Count 387 D (160-400) X10*3/uL MPV 10.9 (9.4-12.3) fL Immature Gran % (Auto) 0.3 (0.0-0.4) % Neut % (Auto) 69.8 (45-73) % Lymph % (Auto) 20.3 (20-40) % [place] % (Auto) 6.5 (2-11) % Eos % (Auto) 2.8 (0-4) % Baso % (Auto) 0.3 (0-2) % Lymph # (Auto) 1.4 (1.2-4.9) X10*3/uL [place] # (Auto) 0.5 (0.1-1.2) X10*3/uL Eos # (Auto) 0.2 (0.0-0.4) X10*3/uL Baso # (Auto) 0.0 (0.0-0.2) X10*3/uL Abs Immat Gran (auto) 0.02 (0.00-0.03) X10*3/uL Absolute Neuts (auto) 4.9 (2.0-8.3) x10*3/uL Absolute Nucleated RBC 0.000 (0.0-0.012) X10*3/uL Nucleated RBC % (auto) 0.0 (0.0-0.2) /100WBC Sodium 140 (135-145) mmol/L Potassium 4.3 (3.3-5.1) mmol/L Chloride 108 (96-108) mmol/L Carbon Dioxide 22 (22-29) mmol/L Anion Gap 14 (12-20) BUN 13 (9-16) mg/dL Creatinine 0.83 (0.5-1.4) mg/dL Estim Creat Clear Calc 96.7 Estimated GFR > 60 Random Glucose 111 (60-115) mg/dL Calcium 9.0 (8.4-10.2) mg/dL Total Bilirubin 0.3 (0.0-1.0) mg/dL Direct Bilirubin 0.1 (0.0-0.5) mg/dL AST 15 (5-31) U/L ALT 10 (0-31) U/L Alkaline Phosphatase 77 (39-117) U/L Total Protein 7.7 (6.5-8.0) g/dL Albumin 4.0 (3.5-5.0) g/dL Lipase 41 (8-78) U/L Urine Color Yellow Urine Appearance Clear Urine pH 5.5 (5.0-9.0) Ur Specific [place] 1.025 (1.005-1.025) Urine Protein Negative (Neg-Trace) mg/dL Urine Glucose (UA) Negative (Negative) mg/dL Urine Ketones Trace (Negative) mg/dL Urine Blood Negative (Negative) Urine Nitrite Negative (Negative) Ur Leukocyte Esterase Trace H (Negative) Urine RBC 3-5 H (0-2) /HPF Urine WBC 0-5 (0-5) /HPF Ur Squamous Epith Cells 3-5 (0-2) /HPF Urine Bacteria None Seen (None Seen) Hyaline Casts 0-2 (0-2) /LPF Radiology Impression Discussion of test interpretation with radiology: I have reviewed the radiologist's reading. Radiologist Impression: Please see the discussion above External Record Review External record reviewed: Outpatient record, Prior outpatient labs and Prior outpatient radiology Medications Administered Discontinued Medications Generic Name Dose Route Start Last Admin Trade Name Freq PRN Reason Stop Dose Admin Iohexol 100 ml 01/18/23 20:33 01/18/23 20:33 Iohexol 350 Mg/Ml 100 Ml Infus..Btl IV 01/18/23 20:34 85 ml ONCE ONE Administration Discharge Plan Discharge Clinical Impression: Abdominal discomfort, Musculoskeletal pain Patient Disposition: Home, Self-Care Instructions: Abdominal Pain (ED), Musculoskeletal Pain (ED) Additional Instructions: 1. Recommend [id number] Tylenol for pain control. 2. Resume all home medications as prescribed. 3. The workup that you have received today is negative to suggest any intra- abdominal issues, you do not have a urinary tract infection and suspect this may be musculoskeletal in nature. 4. Please follow-up with your primary care doctor. Return to the ER for any worsening symptoms. Prescriptions: No Action cholecalciferol (vitamin D3) 25 mcg (1,000 unit) capsule 25 mcg PO DAILY Qty: 90 3RF zinc gluconate 30 mg tablet 30 mg PO .qod Qty: 30 3RF meloxicam 15 mg tablet 15 mg PO DAILY pantoprazole 40 mg tablet,delayed release (DR/EC) 40 mg PO DAILY Qty: 90 3RF sucralfate [Carafate] 100 mg/mL suspension 10 ml PO BID Qty: 414 3RF Vitron-C 65 mg iron- 125 mg tablet,delayed release (DR/EC) 1 tab PO BEDTIME Qty: 90 3RF Referrals: Emily Butt NP [Primary Care Provider] -
--- NOTE | 2023-01-18 20:22 | PC.NURSE ---
pt resting quietly, reporting 8/10 RLQ pain x 4 days, denies any nausea/vomiting/constipation, 20G IV placed R AC. pt pending CT scan. no new orders at this time
[2023-01-18] MEDS: iohexoL 350 MG/ML 100 ML INFUS..BTL IV (20:33)
[2023-01-18 22:15] VITALS: BP 104/56; PULSE 70; RESP 18; TEMP 36.8; O2SAT 100
== END 2023-01-18 23:17 | disposition home or self-care (01) ==
PROVIDERS: Emergency Provider Student in an Organized Health Care Education/Training Program; PCP Nurse Practitioner Family
DX: R10.31 Right lower quadrant pain (principal); M79.18 Myalgia, other site
CPT/HCPCS: 36415; 74177; 80048; 80076; 81001; 83690; 85025; 99284; Q9967

== ENCOUNTER 2023-10-04 09:48 | Outpatient (AMB) | payer OTHER, SELFPAY ==
--- NOTE | 2023-10-04 10:01 | A.OFFVIS_ITS ---
VS Expanded 10/04/23 10:07 BP 121/71 Blood Pressure Location Rt brachial Blood Pressure Position Sitting Pulse 63 Pulse Source Pulse Oximeter Temp 97.4 F Temperature Source Temporal Artery Scan Pulse Oximetry 100 Oxygen Delivery Method Room Air Height 5 ft 5 in Weight 209 lb 12.8 oz BMI 34.9 Body Fat % 38.6 Body Fat Mass 81.0 Fat Free Mass 128.8 Visceral Fat Rating 10.0 Body Water % 43.7 Body Water Mass 91.8 Muscle Mass/Score 122.4 Basal Metabolic Rate/Score 1,766 Intake Visit Reasons: OV PO LSG 09/12/18 Allergies No Known Allergies [No Known Allergies*] Allergy (Verified 10/04/23 10:01) Medication List - Last Reconciled 10/04/23 by DONAVAN Major No Known Home Meds HPI Comments Details: This?is a?48?yo female who is s/p LSG 09/12/2018. Weight gain of 20.4lbs since last OV in Mar 2022. Pt reports that PPI and carafate did help heartburn that she had complained about at the last visit. She does continue to have some nausea with some solid foods and also protein shakes. Water is okay. Present meal plan includes: breakfast- 9am 30g Premier protein shake (takes 30min to drink) lunch- 12pm same shake afternoon- 3pm same shake dinner- 6pm 2oz protein, 2oz veg or salad Pt may have Spanish yogurt or [address] of protein for dinner will have an apple or banana 9pm Exercise- has a knee brace, does 30min on bike twice a day, walks a lot PFSH Medical History No pertinent past medical history Surgical History H/O tubal ligation Hx of section H/O gastric sleeve Family History Maternal Grandmother Breast CA Social History Alcohol intake: never Patient Tobacco Use Status: Never used Tobacco Female Reproductive History Menstrual Age of Menarche: 10 Physical Exam Vital Signs: Last Vital Signs Temp 97.4 F 10/04/23 10:07 Pulse 63 10/04/23 10:07 BP 121/71 10/04/23 10:07 Pulse Ox 100 10/04/23 10:07 Oxygen Delivery Method Room Air 10/04/23 10:07 BMI result Body Mass Index 34.9 Assessment & Plan Assessment & Plan (1) Abdominal pain: Code(s): R10.9 - Unspecified abdominal pain Category: Medical (2) Obesity: Code(s): E66.9 - Obesity, unspecified Category: Medical (3) Status post sleeve gastrectomy: Code(s): Z90.3 - Acquired absence of stomach [part of] Category: Medical Plan Again reviewed drinking more slowly, should take 2 hours to finish a shake not 30min. Pt likely getting too much protein if taking 3 shakes plus a meal, will decrease to 2 shakes plus one meal per day. Labs ordered, pt with hx anemia. UGI ordered for complaints of persistent nausea. RTC once complete. I spent a total of 30 minutes reviewing/updating records, examining the patient and counseling the patient on weight management as detailed above. Orders: Orders Hemoglobin A1c Today R10.9 - Unspecified abdominal pain, Z90.3 - Acquired absence of stomach [part of] Complete Blood Count Auto Diff Today R10.9 - Unspecified abdominal pain, Z90.3 - Acquired absence of stomach [part of] Lipid Panel Today R10.9 - Unspecified abdominal pain, Z90.3 - Acquired absence of stomach [part of] Comprehensive Met. Panel Today R10.9 - Unspecified abdominal pain, Z90.3 - Acquired absence of stomach [part of] Vitamin B12 and Folate Today R10.9 - Unspecified abdominal pain, Z90.3 - Acquired absence of stomach [part of] Zinc Today R10.9 - Unspecified abdominal pain, Z90.3 - Acquired absence of stomach [part of] Vitamin B1 Today R10.9 - Unspecified abdominal pain, Z90.3 - Acquired absence of stomach [part of] TSH reflex Free T4 Today R10.9 - Unspecified abdominal pain, Z90.3 - Acquired absence of stomach [part of] Ferritin Today R10.9 - Unspecified abdominal pain, Z90.3 - Acquired absence of stomach [part of] Vitamin D 25-OH Total Today R10.9 - Unspecified abdominal pain, Z90.3 - Acquired absence of stomach [part of] Insulin Today R10.9 - Unspecified abdominal pain, Z90.3 - Acquired absence of stomach [part of] IRON PROFILE Today R10.9 - Unspecified abdominal pain, Z90.3 - Acquired absence of stomach [part of] C Reactive Protein Today R10.9 - Unspecified abdominal pain, Z90.3 - Acquired absence of stomach [part of] Vitamin A Today R10.9 - Unspecified abdominal pain, Z90.3 - Acquired absence of stomach [part of] FL upper GI w air Today R10.9 - Unspecified abdominal pain Medications: New pantoprazole 40 mg PO DAILY 90 tabs 1RF ondansetron 4 mg PO Q8H PRN 20 tabs 1RF nausea and vomiting
[2023-10-04 10:07] VITALS: BP 121/71; PULSE 63; TEMP 36.3; O2SAT 100; BMI 34.9
== END 2023-10-04 10:34 | disposition home or self-care (01) ==
PROVIDERS: PCP Nurse Practitioner Family; Visit Provider Physician Assistant Surgical
DX: R10.9 Unspecified abdominal pain (principal); E66.9 Obesity, unspecified; Z68.34 Body mass index [BMI] 34.0-34.9, adult; Z90.3 Acquired absence of stomach [part of]; Z98.84 Bariatric surgery status
CPT/HCPCS: 99214

== ENCOUNTER → 2023-10-04 09:48 | Outpatient (BNVA) | payer OTHER, SELFPAY | PROVIDERS: PCP Nurse Practitioner Family; Visit Provider Physician Assistant Surgical | DX: R10.9 Unspecified abdominal pain (principal); R12 Heartburn; E66.9 Obesity, unspecified; Z71.3 Dietary counseling and surveillance; Z98.84 Bariatric surgery status; Z48.815 Encounter for surgical aftercare following surgery on the digestive system; Z68.34 Body mass index [BMI] 34.0-34.9, adult | CPT/HCPCS: 99212 ==

== ENCOUNTER 2023-10-11 10:16 | Outpatient (REF) | payer OTHER, SELFPAY ==
[2023-10-11 10:39] LABS: MANUAL DIFF FLAG NO
[2023-10-11 11:23] LABS: Basophils Percent Auto 0.2 % (0-2); Eosinophils Absolute Auto 0.2 X10*3/uL (0.0-0.4); Eosinophils Percent Auto 3.2 % (0-4); Hematocrit 33.8 % (37.0-47.0); Hemoglobin 10.7 g/dl (12.0-16.0); Imm Gran Abs Auto 0.03 X10*3/uL (0.00-0.03); Imm Gran Pct Auto 0.5 % (0.0-0.4); Lymphocytes Absolute Auto 1.3 X10*3/uL (1.2-4.9); Mean Corpuscular HGB Conc 31.7 g/dl (31.0-35.0); Mean Corpuscular Hemoglobin 25.1 pg (27.0-33.0); Mean Corpuscular Volume 79.2 fL (80.0-98.0); Monocytes Absolute Auto 0.3 X10*3/uL (0.1-1.2); Monocytes Percent Auto 5.5 % (2-11); Neutrophils Absolute Auto 3.8 x10*3/uL (2.0-8.3); Neutrophils Percent Auto 67.6 % (45-73); Platelet Count 313 X10*3/uL (160-400); Red Blood Count 4.27 X10*6/uL (4.20-5.50); Red Cell Distribution Width 16.8 % (11.0-16.0); White Blood Count 5.7 X10*3/uL (4.8-10.8)
[2023-10-11 11:47] LABS: Estimated Average Glucose 114 mg/dL; Hemoglobin A1c % 5.6 % (<6.0)
[2023-10-11 12:17] LABS: Alanine Aminotransferase 9 U/L (0-31); Alkaline Phosphatase 78 U/L (39-117); Anion Gap 13 (12-20); Aspartate Amino Transferase 13 U/L (5-31); Bilirubin Total 0.4 mg/dL (0.0-1.0); Blood Urea Nitrogen 14 mg/dL (9-16); C Reactive Protein 0.57 mg/dL (< or = 0.50); Calcium 8.9 mg/dL (8.4-10.2); Carbon Dioxide 25 mmol/L (22-29); Chloride 107 mmol/L (96-108); Cholesterol 203 mg/dL (<200); Estimated Glomerular Filt Rate > 60; Glucose Random 97 mg/dL (60-115); HDL Cholesterol 50 mg/dL (>40); Iron 39 mcg/dL (30-160); LDL Cholesterol Calculated 130 mg/dL (<100); Percent Iron Saturation 12 % (15-50); Potassium 4.3 mmol/L (3.3-5.1); Sodium 141 mmol/L (135-145); Total Iron Binding Capacity 322 mcg/dL (228-428); Total Protein 7.3 g/dL (6.5-8.0); Triglycerides 115 mg/dL (<150); Unsaturated Iron Binding 283 ug/dL
[2023-10-11 12:26] LABS: Ferritin 9 ng/mL (10-250); TSH reflex Free T4 1.72 uIU/mL (0.32-4.0)
[2023-10-11 12:58] LABS: Insulin 12 uU/mL (2-29)
[2023-10-11 13:05] LABS: Folate 5.2 ng/mL (> or = 4.0); Vitamin B12 356 pg/mL (200-900)
[2023-10-14 17:08] LABS: Zinc 61 mcg/dL (60-130)
[2023-10-16 13:04] LABS: Vitamin B1 11 nmol/L (8-30)
[2023-10-18 01:28] LABS: Vitamin A 33 mcg/dL (38-98)
== END 2023-10-11 10:17 | disposition home or self-care (01) ==
LOC: HO.LAB 10:16
PROVIDERS: Visit Provider Physician Assistant Surgical
DX: R10.9 Unspecified abdominal pain (principal); Z90.3 Acquired absence of stomach [part of]
CPT/HCPCS: 36415; 80053; 80061; 82306; 82607; 82728; 82746; 83036; 83525; 83540; 84425; 84443; 84590; 84630; 85025; 86140

== ENCOUNTER 2023-12-13 09:04 | Outpatient (REF) | payer OTHER, SELFPAY ==
--- NOTE | ~2023-12-13 | FL_ITS ---
EXAMINATION: XR FLUOROSCOPY UPPER GI WITH AIR CLINICAL INFORMATION: Reflux. Abdominal pain. History of sleeve gastrectomy. COMPARISON: None TECHNIQUE: Fluoroscopic air contrast upper GI examination was performed utilizing standard techniques with thin and thick barium and effervescent granules. Numerous spot images were obtained. FINDINGS: Dual and single contrast images of the esophagus demonstrate a patulous esophagus. and mucosal pattern. No evidence of stricture, mass, or ulcerations identified. Esophageal peristalsis was normal. A moderate sized type I hiatal hernia is present. There is severe reflux up to level of thoracic inlet. Dual contrast and single contrast images of the stomach demonstrated a contour consistent with prior history of sleeve gastrectomy. There are multiple foci of contrast pooling in the fundus of the stomach within the hiatal hernia that likely represent small superficial aphthous ulcers. Contrast freely passed into the gastric antrum and duodenal bulb without delay. Single and air-contrast images of the duodenal bulb demonstrate no abnormality. The duodenal sweep has a normal appearance, course, and mucosal fold appearance. There is a large diverticulum noted in the third segment of the duodenum. The imaged proximal jejunum has a normal fold pattern and caliber. FLUOROSCOPY TIME: 4 minutes 52 seconds Number of Spot Images: 9 Number of Cine: 15 DOSE AREA PRODUCT: 3597 uGy-m2 (microgray-meter squared) FL/FL upper GI w air IMPRESSION: 1. Moderate-sized type I hiatal hernia with severe gastroesophageal reflux. Patulous esophagus. No esophageal mucosal abnormalities. 2. Status post sleeve gastrectomy. 3. Multiple foci of contrast pooling in the fundus of the stomach within the hiatal hernia that may represent small superficial aphthous ulcers. Recommend correlation with EGD. 4. Large diverticulum noted in the third segment of the duodenum. This procedure was performed by Simon Grayson PA-C, and supervised by Dr. James Electronically signed by: Carlos James MD 12/15/2023 04:40 PM EDT RP
== END 2023-12-13 09:05 | disposition home or self-care (01) ==
LOC: HO.XRAY 09:04
PROVIDERS: PCP Nurse Practitioner Family; Visit Provider Physician Assistant Surgical
DX: R10.9 Unspecified abdominal pain (principal)
CPT/HCPCS: 74246

== ENCOUNTER → 2023-12-13 09:06 | Outpatient (BNV) | payer OTHER, SELFPAY | PROVIDERS: PCP Nurse Practitioner Family; Visit Provider Radiology Diagnostic Radiology | DX: K21.9 Gastro-esophageal reflux disease without esophagitis (principal); R10.9 Unspecified abdominal pain; Z98.84 Bariatric surgery status | CPT/HCPCS: 74246 ==

== ENCOUNTER 2024-01-25 11:34 | Day surgery (SDC) | payer OTHER, SELFPAY ==
--- NOTE | 2024-01-23 14:46 | P.CONAN_ITS ---
Documented by User: Livia Timmons NP 01/23/24 14:46 HPI - Anesthesia Eval Consult details Narrative: 48yo F for Upper Endoscopy PMFSH Active Problems Active Problems: All Active Problems Abdominal pain (Acute) Obesity (Acute) Overweight (BMI 25.0-29.9) (Acute) Status post sleeve gastrectomy (Acute) Abnormal uterine bleeding (Acute) Pelvic pain (Acute) Past Medical History Medical History No pertinent past medical history Family History Family History Maternal Grandmother Breast CA Family history of problems with anesthesia: No Surgical History Surgical History H/O tubal ligation Hx of section H/O gastric sleeve History of Problems with Anesthesia: No Social History Social History Are you a primary childcare center director to a significant other at home: No Do you presently have visiting nurse or other home services: No Alcohol intake: never Patient Tobacco Use Status: Never used Tobacco Have you been hit, kicked, punched, or otherwise hurt by someone within the past year? If so, by whom?: No Are you DNR?: No Advance Directives: No Advance Directives Information Provided: Yes Recently lost weight without trying: No Nutrition Risks: No Nutritional Risk FDLMP: its coming soon Meds Allergies Allergy/AdvReac Type Severity Reaction Status Date / Time No Known Allergies Allergy Verified 01/25/24 12:03 [No Known Allergies*] Assessment and Plan Assessment Anesthesia Assessment: Chart Reviewed Final Anesthetic Review Family History of Problems with Anesthesia: No History of Problems with Anesthesia: No Documented by User: Lalitha Mijares MD 01/25/24 13:49 PMF Past Medical History Medical History No pertinent past medical history Family History Family History Maternal Grandmother Breast CA Surgical History Surgical History H/O tubal ligation Hx of section H/O gastric sleeve Social History Social History Are you a primary childcare center director to a significant other at home: No Do you presently have visiting nurse or other home services: No Alcohol intake: never Patient Tobacco Use Status: Never used Tobacco Have you been hit, kicked, punched, or otherwise hurt by someone within the past year? If so, by whom?: No Are you DNR?: No Advance Directives: No Advance Directives Information Provided: Yes Recently lost weight without trying: No Nutrition Risks: No Nutritional Risk FDLMP: its coming soon Meds Allergies Allergy/AdvReac Type Severity Reaction Status Date / Time No Known Allergies Allergy Verified 01/25/24 12:03 [No Known Allergies*] Exam Airway Mallampati Class: II TM Dist: >3cm Neck ROM: Full Loose/Missing/Broken Teeth: No Heart: bradycardic, regular Lungs: CTA Assessment and Plan Assessment Anesthesia Assessment: Anesthesia Plan Discussed Final Anesthetic Review NPO: Yes ASA Class: II Final Preanesthetic Review: Meds/Allgs Chart Reviewed, Consent Obtained/Reviewed and Anes Risks/Benef Reviewed Patient Risk: Low Procedure Risk: Intermediate Anesthetic Plan Anesthetic Plan: MAC: Disposition: Standard PACU
[2024-01-25 11:51] VITALS: BMI 34.8
[2024-01-25] MEDS: Lactated Ringers 1,000 ML 80 ML IVCONT (11:53)
[2024-01-25 12:02] VITALS: BP 148/84; PULSE 59; RESP 18; TEMP 36.6; O2SAT 96
--- NOTE | 2024-01-25 13:32 | PC.NURSE ---
Dr. Mijares updated that patient pulse has fluctuated while in sss, as low as 36 and up to 59. Patient remains asymptomatic. Dr. Mijares assessed patient and patient history. Stat CBC ordered at this time.
--- NOTE | 2024-01-25 13:38 | MHC.SHP ---
Pre-Procedural Eval Section A - 24 Hr Update-Section A only Date of Service: 01/25/24 The patient is an INPATIENT: No The patient has been examined within 24 hours of the surgical procedure. The History & Physical has been completed within 30 days and I have reviewed it.: Yes Section B - Complete if H&P > 30 days Chief Complaint: Postgastric surgery syndromes Details of Present Illness: GERD Relevant Family History (Specify if Yes): No Relevant Social History: None Present Medications: None Medical History: No relevant PMH History of Previous Operations: Relevant previous surgery/procedure and date(s) (Laparoscopic sleeve gastrectomy) Allergies: Allergies Allergy/AdvReac Type Severity Reaction Status Date / Time No Known Allergies Allergy Verified 01/25/24 12:03 [No Known Allergies*] Review of Systems Sugical H&P ROS: Negative: Constitution, Cardiovascular, Respiratory, Neurological, Psychiatric, Hem-Onc, Allergic/Immunologic, Genitourinary, Musculoskeletal, Integumentary, Endocrine and Eyes/Ears/Nose/Throat and Yes, Specify: Gastrointestinal (GERD and vomiting) Exam Surgical H&P Exam: Normal: HEENT, Normal: Heart, Normal: Lungs, Normal: Extremities, Normal: Abdomen, Normal: Skin and Normal: Neurological Plan Diagnosis/Plan: Unchanged (EGD to assess etiology of GERD. Risks of bleeding and perforation were discussed with the patient and she is in agreement with the plan.) I have reviewed the history and physical and performed a pertinent physical examination on my patient. No changes have occurred unless specified. Time Spent With Patient Time: Total time managing care of this patient today ____ minutes.
--- NOTE | 2024-01-25 13:43 | PM.OP ---
Brief Operative Note Date of Service: 01/25/24 Pre-op diagnosis: GERD and vomiting Post-op diagnosis: same (Diaphragmatic hernia) Procedure: PROCEDURE DATE: 01/25/2024 PREOPERATIVE DIAGNOSIS: GERD and vomiting, s/p sleeve gastrectomy POSTOPERATIVE DIAGNOSIS: ?Same as above. 1) diaphragmatic hernia, PROCEDURE: [id number] with biopsies Surgeon: ?Chandler Winston M.D.. Ph.D. Manager Publishing: None ? Anesthesia: IV sedation Estimated blood loss: ?Minimal FINDINGS AND PROCEDURE: ? OPERATIVE INDICATIONS: ?The patient is a 48 year old female known to me who underwent a laparoscopic sleeve gastrectomy by Dr. Francois. The patient had inadequate weight loss so far and is not following regularly at the office.? The patient is anemic and has been complaining of GERD and vomiting. Based on this information I recommended an upper endoscopy to evaluate the patient's symptoms. Risks and complications of the surgery were discussed with the patient in advance particularly the possibility of perforation or bleeding that may require surgical intervention. The patient understood the risks and was in agreement with the plan. ? PROCEDURE: After informed consent was obtained by the patient, the patient was ?transferred to the Operating Room and was placed in the supine position.? After successful induction of IV sedation, a mouth block was inserted and the patient was placed in the left lateral decubitus position. An upper endoscopy was performed next, the oropharynx and esophagus appeared within the normal limits. There was a 3-4cm fixed hiatal hernia. The z-line was smooth. Two biopsies were obtained from the distal esophagus 2-3 cm proximal to the GE junction and two additional biopsies from the GE junction. The sleeve was entered and it appeared to be of normal size. There was no gastritis. There was no stricture or ulcer. Biopsies were obtained from the proximal sleeve as well as the distal antrum. No significant bleeding was noted from any of the biopsy sites. The scope was then advanced into the duodenum which appeared to be normal as well. At that point the duodenum ?and the sleeve were decompressed and the scope was withdrawn from the patient's mouth. The patient extubated and was transferred in stable condition to the Recovery Room for further care. I was present and performed all steps of the procedure. There were no residents to assist with this case. Chandler Winstno M.D., Ph.D. Surgeon: Cody Winston MD Anesthesia: MAC Was an Manager Publishing used for this Procedure?: No Estimated blood loss (mL): 0 IV fluids (mL): 400 Urine output (mL): 0 (No Erickson to record output) Pathology: other (1) antrum x1, 2) proximal sleeve/gastric fundus x1, 3) EGJ x2, 4) distal esophagus x2) Condition: stable Disposition: PACU
[2024-01-25 13:58] LABS: Hemoglobin 9.6 g/dl (12.0-16.0); Mean Corpuscular Hemoglobin 25.1 pg (27.0-33.0); Mean Corpuscular Volume 78.5 fL (80.0-98.0); Mean Platelet Volume 10.7 fL (9.4-12.3); Platelet Count 283 X10*3/uL (160-400); Red Blood Count 3.82 X10*6/uL (4.20-5.50); Red Cell Distribution Width 15.9 % (11.0-16.0); White Blood Count 5.3 X10*3/uL (4.8-10.8)
--- NOTE | 2024-01-25 14:38 | PC.NURSE ---
Dr. Mijarse reviewed lab draw from today. Ok to proceed. No interventions. Patient remains asymptomatic.
[2024-01-25 15:06] VITALS: BP 125/71; PULSE 74; RESP 16; TEMP 36.6; O2SAT 95
[2024-01-25 15:21] VITALS: BP 144/81; PULSE 70; RESP 16; O2SAT 100
[2024-01-25 15:31] VITALS: BP 142/80; PULSE 72; RESP 16; TEMP 36.6; O2SAT 99
== END 2024-01-25 15:33 | disposition home or self-care (01) ==
PROVIDERS: Anesthesiology; PCP Nurse Practitioner Family; Visit Provider Surgery
PROC: 0DJ08ZZ Inspection of Upper Intestinal Tract, Via Natural or Artificial Opening Endoscopic (ICD-10-PCS; CPT 43235; principal; 2024-01-25 13:10)
DX: K91.1 Postgastric surgery syndromes (principal); K21.9 Gastro-esophageal reflux disease without esophagitis; E66.9 Obesity, unspecified; Z68.34 Body mass index [BMI] 34.0-34.9, adult; R10.9 Unspecified abdominal pain; Z90.3 Acquired absence of stomach [part of]; R11.10 Vomiting, unspecified; K44.9 Diaphragmatic hernia without obstruction or gangrene; D64.9 Anemia, unspecified; Z98.84 Bariatric surgery status; Z98.51 Tubal ligation status
CPT/HCPCS: 43239; 36415; 85027; 88305; 88313; 88342; J1596; J2003; J2250; J2704

== ENCOUNTER → 2024-01-25 11:34 | Outpatient (BNV) | payer OTHER, SELFPAY | PROVIDERS: PCP Nurse Practitioner Family; Visit Provider Surgery | DX: K44.0 Diaphragmatic hernia with obstruction, without gangrene (principal); R11.10 Vomiting, unspecified | CPT/HCPCS: 43239 ==

== ENCOUNTER 2024-08-07 09:49 | Emergency (ER) | payer OTHER, SELFPAY ==
--- NOTE | ~2024-08-07 | XR_ITS ---
EXAMINATION: XR ANKLE, RIGHT CLINICAL INFORMATION: rt ankle pain COMPARISON: None available. TECHNIQUE: AP, lateral, and mortise views of the right ankle. FINDINGS: No acute cortical disruption or malalignment. No joint effusion. No lytic or blastic lesions. No spur, calcaneus. No metallic or radiopaque foreign body. No subcutaneous emphysema. XR/XR ankle RT 2V IMPRESSION: No acute fracture or dislocation. Negative x-ray. Electronically signed by: Frank Partida MD 08/07/2024 10:57 AM EDT
--- NOTE | ~2024-08-07 | US_ITS ---
EXAMINATION: US TRIPLEX LOWER EXTREMITY, RIGHT CLINICAL INFORMATION: Pain in the right calf. COMPARISON: None available. TECHNIQUE: Color-flow triplex imaging with spectral analysis and compression Doppler were performed on the right lower extremity. FINDINGS: Respiratory variation, normal compression and augmented flow are present throughout the interrogated common femoral vein, superficial femoral vein, profunda femoral vein, popliteal vein and midcalf peroneal and posterior tibial venous segments. There is no García's cyst. US/US venous duplex LE RT IMPRESSION: No acute deep venous thrombosis interrogated veins, right lower extremity. Negative for DVT. Electronically signed by: Frank Partida MD 08/07/2024 12:57 PM EDT
--- NOTE | ~2024-08-07 | XR_ITS ---
EXAMINATION: XR KNEE, RIGHT CLINICAL INFORMATION: rt knee pain COMPARISON: None available. TECHNIQUE: AP and lateral views of the right knee. FINDINGS: No acute cortical disruption or malalignment. No lytic or blastic lesions. No suprapatellar bursa joint effusion. Focal 2 mm calcification adjacent to the quadriceps tendon insertion. Mild joint space narrowing involving the medial compartment. XR/XR knee RT 2V IMPRESSION: Mild medial compartment osteoarthrosis without acute fracture or dislocation. Questionable calcific tendinopathy, quadriceps tendon. Electronically signed by: Frank Partida MD 08/07/2024 10:56 AM EDT
[2024-08-07 10:03] VITALS: BP 128/60; PULSE 51; RESP 18; TEMP 36.3; O2SAT 100; BMI 34.9
--- NOTE | 2024-08-07 11:29 | ED.LOWEXIN ---
HPI - Extremity Injury (Lower) General Chief Complaint: Extremity Injury, Lower Stated Complaint: Fall- R Ankle Injury, R Knee Pain Time Seen by Provider: 08/07/24 11:10 Source: patient Mode of arrival: ambulatory Limitations: no limitations History of Present Illness ED Provider: Blas Ford PA-C HPI Narrative: 49-year-old female with history of obesity status post sleeve gastrectomy who presents to the ER for evaluation of right lower leg pain after she twisted her ankle while walking down the stairs 4 days ago. She reports initially she had pain in the ankle, it then radiated to the middle of her knee. She then developed calf pain. no swelling the calf, no chest pain. no hx DVT. she reports pain in the ankle is improved and she c/o ongoing pain in the knee and calf. complaint: knee injury, leg injury and ankle injury Type of Injury: inversion Place: home Severity: moderate Severity scale (1-10): 5 Relieving factors: immobilization and rest Exacerbating factors: weight bearing, movement and palpation Context: fall Associated symptoms: ambulatory Other symptoms: none Related Data Previous Rx's ?Medication ?Instructions ?Recorded ondansetron 4 mg disintegrating 4 mg PO Q8H PRN nausea and 10/04/23 tablet vomiting #20 tabs pantoprazole 40 mg tablet,delayed 40 mg PO DAILY #90 tabs 10/04/23 release cholecalciferol (vitamin D3) 25 25 mcg PO DAILY #90 caps 10/31/23 mcg (1,000 unit) capsule iron,carbonyl 65 mg-vitamin C 125 1 tab PO BEDTIME #90 tabs 10/31/23 mg tablet,delayed release (Vitron-C) vitamin A palmitate 3,000 mcg 10,000 unit PO DAILY #90 caps 10/31/23 (10,000 unit) capsule Allergies Allergy/AdvReac Type Severity Reaction Status Date / Time No Known Allergies Allergy Verified 08/07/24 10:05 [No Known Allergies*] Review of Systems Review of Systems: Yes all other systems are reviewed and are negative PMFSH Past Medical History Medical History No pertinent past medical history Surgical History H/O tubal ligation Hx of section H/O gastric sleeve Family History Family History Maternal Grandmother Breast CA Social History Social History Are you a primary transition of care specialist to a significant other at home: No Do you presently have visiting nurse or other home services: No Alcohol intake: never Patient Tobacco Use Status: Never used Tobacco Advance Directives: No Advance Directives Information Provided: Yes Do you have a plan to hurt others: No Plan Physical Exam Vital Signs: Vital Signs: Last Vital Signs Temp 97.4 F 08/07/24 13:44 Pulse 51 08/07/24 13:44 Resp 18 08/07/24 13:44 BP 128/60 08/07/24 13:44 Pulse Ox 100 08/07/24 13:44 O2 Del Method Room Air 08/07/24 13:44 BMI result Body Mass Index 34.9 Appearance: Alert. Oriented X3. No acute distress. HEENT: normal inspection CVS: Normal heart rate and rhythm. Pulses normal. Respiratory: No respiratory distress. Skin: Skin warm and dry. Normal skin color. Normal skin turgor. No rashes. Extremities: prominant varicose veins in the right lower lateral leg, no LE edema, +calf tenderness on the right. normal inspection of the right ankle, no swelling, nontender. FROM. right knee with mild tenderness of the medial and lateral joint lines. FROM. mild tenderness of the popliteal area, no masses. Neuro: Oriented X 3. No motor deficit. No sensory deficit. Medical Decision Making Medical Decision Making MDM Narrative: 49 yo female presenting for right knee, right ankle and right calf pain s/p fall a few days ago. +tender calf on exam with minimal swelling, no ecchymosis. ankle and knee normal to inspection. she is ambulatory US done and negative for DVT XR showing arthritis of the knee, ankle normal results d/w patient including supportive care. jose wrap applied. stable for d/c home Differential Diagnosis Differential Diagnoses: The differential diagnosis associated with the presentation includes ankle sprain, ankle fracture, muscle strain, DVT, ligamentous injury of the knee, knee sprain Independent Interpretation I performed an independent interpretation of an: Plain X-Ray and Ultrasound Interpretation: ankle without acute fx or edema knee xr without acute fx us without dvt Radiology Impression Discussion of test interpretation with radiology: I have reviewed the radiologist's reading. External Record Review External record reviewed: Prior outpatient labs Prescription Management I considered prescription management with: Pain Medication Procedures Orthopedic Splinting/Casting Injury #1: Side: right Lower Extremity Injury Location: lower leg Lower Extremity Immobilizer: Jose wrap Critical Care Time Critical Care Time Critical Care Time: No Discharge Plan Discharge Clinical Impression: Muscle strain of left lower extremity Patient Disposition: Home, Self-Care Instructions: Muscle Strain (DC) Additional Instructions: your ultrasound was negative for blood clot your knee x-ray showed arthritis your ankle x-ray was normal Your pain is most likely due to muscle strain and spasm. Wear the JOSE wrap for compression and support Take ibuprofen and tylenol as needed for pain rest and ice the area as needed If you develop new or worsening symptoms call 911 or come back to the ER for further evaluation. Prescriptions: No Action Vitron-C 65 mg iron- 125 mg tablet,delayed release (DR/EC) 1 tab PO BEDTIME Qty: 90 3RF vitamin A palmitate 3,000 mcg (10,000 unit) capsule 10,000 unit PO DAILY Qty: 90 3RF cholecalciferol (vitamin D3) 25 mcg (1,000 unit) capsule 25 mcg PO DAILY Qty: 90 3RF ondansetron 4 mg tablet,disintegrating 4 mg PO Q8H PRN (Reason: nausea and vomiting) Qty: 20 1RF pantoprazole 40 mg tablet,delayed release (DR/EC) 40 mg PO DAILY Qty: 90 1RF Stand Alone Forms: Work/School Release Interventions: ED Discharge Assessment Last Done: 08/07/24 13:44 Discharge Date/Time: 08/07/24 13:44 Print Language: [place]
[2024-08-07 13:44] VITALS: BP 128/60; PULSE 51; RESP 18; TEMP 36.3; O2SAT 100
== END 2024-08-07 13:44 | disposition home or self-care (01) ==
PROVIDERS: Emergency Provider Emergency Medicine
DX: S93.401A Sprain of unspecified ligament of right ankle, initial encounter (principal); M79.604 Pain in right leg; R60.0 Localized edema; W10.9XXA Fall (on) (from) unspecified stairs and steps, initial encounter; Y93.9 Activity, unspecified; Y92.9 Unspecified place or not applicable; Y99.8 Other external cause status
CPT/HCPCS: 73560; 73600; 93971; 99282; 99284

== ENCOUNTER → 2024-08-07 10:30 | Outpatient (BNV) | payer OTHER, SELFPAY | PROVIDERS: Visit Provider Radiology Diagnostic Radiology | DX: M79.661 Pain in right lower leg (principal); M25.561 Pain in right knee; M25.571 Pain in right ankle and joints of right foot | CPT/HCPCS: 73560; 73600; 93971 ==

== ENCOUNTER 2024-09-06 16:14 | Emergency (ER) | payer OTHER, SELFPAY ==
--- NOTE | ~2024-09-06 | CT_ITS ---
CLINICAL HISTORY: epigastric pain, tenderness, hx of gastric sleeve CT abdomen and pelvis with contrast Comparison: None provided Findings: No consolidation or effusion. Nonobstructing left renal calculus. No hydronephrosis of either kidney. The liver, gallbladder, spleen, adrenal glands and pancreas are unremarkable. No bowel obstruction, pneumoperitoneum, or pneumatosis. Moderate volume of fecal loading throughout the colon. No bowel wall thickening. Moderate hiatal hernia. Evidence of previous gastric sleeve. No distention of the stomach. Pelvic contents unremarkable. Normal appendix. Uterus is absent. No ascites. No acute fracture. IMPRESSION: No acute findings. This document has been electronically signed by: Isac Navarro MD on 09/06/2024 22:22:32
[2024-09-06 16:37] VITALS: BP 135/74; PULSE 59; RESP 18; TEMP 36.3; O2SAT 100; BMI 34.9
--- NOTE | 2024-09-06 16:37 | ED_ITS ---
HPI - Abdominal Pain General Chief Complaint: Abdominal Pain Stated Complaint: abd pain / sleeve surg 3 yrs ago had hernia Time Seen by Provider: 09/06/24 19:31 History of Present Illness ED Provider: Janice MISTRY narrative: The patient is a 49-year-old woman. She has a history of gastric sleeve surgery. She says that for the last several weeks she has been having pain when she eats. She indicates that she has the pain in her epigastrium. She says the these symptoms has been most acute over the last 2 weeks. She says that anything she eats makes her feel very full and uncomfortable almost immediately. She is therefore eating less than usual. She says that the discomfort can last for a couple of hours after it begins. This morning she ate too chicken nuggets and almost immediately felt full and uncomfortable with a burning sensation in her epigastrium. She ultimately came to the emergency room because of this pain. She still has some pain at this point, several hours later. No fever, sweats, chills. No cough or sputum. No nausea or vomiting. Related Data Previous Rx's ?Medication ?Instructions ?Recorded ondansetron 4 mg disintegrating 4 mg PO Q8H PRN nausea and 10/04/23 tablet vomiting #20 tabs pantoprazole 40 mg tablet,delayed 40 mg PO DAILY #90 t abs 10/04/23 release cholecalciferol (vitamin D3) 25 25 mcg PO DAILY #90 ca ps 10/31/23 mcg (1,000 unit) capsule iron,carbonyl 65 mg-vitamin C 125 1 tab PO BEDTIME #90 tabs 10/31/23 mg tablet,delayed release (Vitron-C) vitamin A palmitate 3,000 mcg 10,000 unit PO DAILY #90 caps 10/31/23 (10,000 unit) capsule omeprazole 40 mg capsule,delayed 40 mg PO DAILY #30 ca ps 09/06/24 release sucralfate 1 gram tablet 1 g PO TID PRN epigastric pa in #60 09/06/24 tabs Allergies Allergy/AdvReac Type Severity Reaction Status Date / Time No Known Allergies (No Known Allergy Verified 09/06/24 16:39 Allergies*) Review of Systems Review of Systems Yes all other systems are reviewed and are negative PMFSH Past Medical History Medical History No pertinent past medical history Surgical History H/O tubal ligation Hx of section H/O gastric sleeve Family History Family History Maternal Grandmother Breast CA Social History Social History Are you a primary certified caregiver to a significant other at home: No Do you presently have visiting nurse or other home services: No Alcohol intake: never Patient Tobacco Use Status: Never used Tobacco Smoked in Last 30 Days: No Use of substances other than those prescribed or required for medical reasons: No Advance Directives: No Advance Directives Information Provided: No Do you have a plan to hurt others: No Plan Patient : No Physical Exam ED Vital Signs: Vital Signs - 24 hr 09/06/24 16:37 09/06/24 19:06 09/06/24 22:15 Temperature 97.3 F 98.1 F Pulse Rate 59 50 54 Respiratory Rate 18 16 20 Blood Pressure 135/74 138/87 127/70 Pulse Oximetry 100 100 100 Oxygen Delivery Method Room Air Room Air BMI result Body Mass Index 34.9 Const Other: the patient is awake, alert, pleasant, cooperative. She does not appear obviously acutely ill. Orientation/consciousness: patient oriented x3 HENMT Other: Face is symmetrical, mucous membranes moist. Eyes Other: Pupils are round equal, conjunctivae are clear, extraocular movements intact Neck Neck: Yes normal visual inspection Resp Effort & Inspection: normal respiratory effort Auscultation: clear to auscultation bilaterally Cardio Rate: regular rate Rhythm: regular rhythm Heart sounds: S1 normal heart sound present and S2 normal heart sound present GI Other: The abdomen is soft. There is some tenderness in the epigastrium but without obvious guarding. No rebound. The abdomen elsewhere seems quite soft and nontender. Skin General skin exam: no rashes or lesions noted Neuro General: patient oriented x3, tone normal, moves all extremities, no focal motor deficits and CN's II-XI intact bilaterally Extrem Other: No calf swelling or tenderness, no asymmetry Course Course Course Narrative: This is a Rapid Medical Examination (RME) performed by Blas Ford PA-C in triage. Full HPI, ROS, assessment and treatment plan per primary provider in the Main ED. 49 yo female with history of gastric sleeve at [facility] 3 years ago complicated by hernia (was operated on, unclear what kind) who presents to the ER for evaluation of epigastic postprandial abdominal pain for the 2.5 weeks. No vomiting and has been having normal bowel movements. Pain similar to when she had her hernia. Plan: [facility] records to find out what kind of hernia she had, labs to start Medical Decision Making Medical Decision Making MDM Narrative: the patient is a 49-year-old woman with a history of gastric sleeve surgery. she presents with worsening postprandial pain over the last 2 weeks. She feels the pain exclusively in the epigastrium. She does not report associated nausea or vomiting. No associated fever, sweats, chills. Her description of the symptoms and her physical exam seem most likely suggestive of gastritis. Her labs were unremarkable with a normal white count and differential, normal basic metabolic panel, unremarkable LFTs, normal lipase. Hemoglobin is stable. Clinically I thought this was probably gastritis and she was given a dose of liquid sucralfate. She did not feel this was very effective in improving her discomfort. She was then given a dose of Maalox, again without relief. At that point I felt obligated to pursue a CT of the abdomen and pelvis. A CT of the abdomen and pelvis shows no acute findings. The patient was given a dose of IV pantoprazole. Ultimately the patient seemed reassured enough to be discharged. She will be discharged with a prescription for omeprazole 40 mg daily and PRN sucralfate in addition. She should contact Dr. Winston on Monday and should also follow up with her PCP. Lab Data 09/06/24 17:15 09/06/24 17:15 Labs: Lab Results 09/06/24 Range/Units 17:15 WBC 6.3 (4.8-10.8) X10*3/uL RBC 4.12 L (4.20-5.50) X10*6/uL Hgb 10.6 L (12.0-16.0) g/dl Hct 32.3 L (37.0-47.0) % MCV 78.4 L (80.0-98.0) fL MCH 25.7 L (27.0-33.0) pg MCHC 32.8 (31.0-35.0) g/dl RDW 17.0 H (11.0-16.0) % Plt Count 326 (160-400) X10*3/uL MPV 10.1 (9.4-12.3) fL Immature Gran % (Auto) 0.3 (0.0-0.4) % Neut % (Auto) 67.4 (45-73) % Lymph % (Auto) 22.0 (20-40) % Newton % (Auto) 6.8 (2-11) % Eos % (Auto) 3.2 (0-4) % Baso % (Auto) 0.3 (0-2) % Lymph # (Auto) 1.4 (1.2-4.9) X10*3/uL Newton # (Auto) 0.4 (0.1-1.2) X10*3/uL Eos # (Auto) 0.2 (0.0-0.4) X10*3/uL Baso # (Auto) 0.0 (0.0-0.2) X10*3/uL Abs Immat Gran (auto) 0.02 (0.00-0.03) X10*3/uL Absolute Neuts (auto) 4.3 (2.0-8.3) x10*3/uL Absolute Nucleated RBC 0.000 (0.0-0.012) X10*3/uL Nucleated RBC % (auto) 0.0 (0.0-0.2) /100WBC Sodium 139 (135-145) mmol/L Potassium 4.0 (3.3-5.1) mmol/L Chloride 107 (96-108) mmol/L Carbon Dioxide 26 (22-29) mmol/L Anion Gap 10 L (12-20) BUN 11 (9-16) mg/dL Creatinine 0.78 (0.5-1.4) mg/dL Estim Creat Clear Calc 100.6 Estimated GFR > 60 Random Glucose 80 (60-115) mg/dL Calcium 9.0 (8.4-10.2) mg/dL Magnesium 2.0 (1.6-2.6) mg/dL Total Bilirubin 0.3 (0.0-1.0) mg/dL Direct Bilirubin 0.1 (0.0-0.5) mg/dL AST 19 (5-31) U/L ALT 13 (0-31) U/L Alkaline Phosphatase 85 (39-117) U/L Total Protein 7.1 (6.5-8.0) g/dL Albumin 4.1 (3.5-5.0) g/dL Lipase 45 (8-78) U/L Medications Administered Discontinued Medications Generic Name Dose Route Start Last Admin Trade Name Freq PRN Reason Stop Dose Admin Al Hydroxide/Mg Hydroxide 60 ml 09/06/24 20:21 09/06/24 20:45 Magnesium Hydrox/Alum Hydrox 30 Ml Oral.Susp PO 09/06/24 20:22 60 ml ONCE ONE Administration Iohexol 85 ml 09/06/24 21:48 09/06/24 21:49 Iohexol 350 Mg/Ml 100 Ml Infus..Btl IV 09/06/24 21:49 85 ml ONCE ONE Administration Pantoprazole Sodium 40 mg 09/06/24 21:16 09/06/24 21:31 Pantoprazole Sodium 40 Mg/10 Ml Vial IVPUSH 09/06/24 21:17 40 mg ONCE ONE Administration Sucralfate 1 gm 09/06/24 19:43 09/06/24 19:53 Sucralfate Oral Suspension 1 Gm/10 Ml Oral.Susp PO 09/06/24 19:44 1 gm ONCE ONE Administration Discharge Plan Discharge Clinical Impression: Epigastric abdominal pain Patient Disposition: Home, Self-Care Instructions: Gastritis (ED) Additional Instructions: your testing in the emergency room today is very reassuring. Your symptoms may be related to a stomach acid problem that we called gastritis. I have sent a prescription for the medication omeprazole to your pharmacy. Please take this medication every day regardless of how you are feeling. I have also sent a prescription for a medication called sucralfate that you may use on an as-needed basis up to 3 times a day. In the meantime also avoid greasy or fatty foods. Also avoid spicy foods. Please contact your surgeon on Monday to discuss these symptoms. Also follow up with your regular doctor. Prescriptions: New omeprazole 40 mg capsule,delayed release(DR/EC) 40 mg PO DAILY Qty: 30 0RF sucralfate 1 gram tablet 1 g PO TID PRN (Reason: epigastric pain) Qty: 60 0RF No Action Vitron-C 65 mg iron- 125 mg tablet,delayed release (DR/EC) 1 tab PO BEDTIME Qty: 90 3RF vitamin A palmitate 3,000 mcg (10,000 unit) capsule 10,000 unit PO DAILY Qty: 90 3RF cholecalciferol (vitamin D3) 25 mcg (1,000 unit) capsule 25 mcg PO DAILY Qty: 90 3RF ondansetron 4 mg tablet,disintegrating 4 mg PO Q8H PRN (Reason: nausea and vomiting) Qty: 20 1RF pantoprazole 40 mg tablet,delayed release (DR/EC) 40 mg PO DAILY Qty: 90 1RF Referrals: Cody Winston MD [Physician, Bariatric Surgery] Referral Note: postprandial epigastric pain, presumably gastritis Emily Butt NP [Physician, Family Practice] Print Language: Tamazight
[2024-09-06 17:23] LABS: MANUAL DIFF FLAG NO
[2024-09-06 17:25] LABS: Basophils Percent Auto 0.3 % (0-2); Eosinophils Absolute Auto 0.2 X10*3/uL (0.0-0.4); Eosinophils Percent Auto 3.2 % (0-4); Hematocrit 32.3 % (37.0-47.0); Hemoglobin 10.6 g/dl (12.0-16.0); Imm Gran Abs Auto 0.02 X10*3/uL (0.00-0.03); Imm Gran Pct Auto 0.3 % (0.0-0.4); Lymphocytes Absolute Auto 1.4 X10*3/uL (1.2-4.9); Mean Corpuscular HGB Conc 32.8 g/dl (31.0-35.0); Mean Corpuscular Hemoglobin 25.7 pg (27.0-33.0); Mean Corpuscular Volume 78.4 fL (80.0-98.0); Mean Platelet Volume 10.1 fL (9.4-12.3); Monocytes Absolute Auto 0.4 X10*3/uL (0.1-1.2); Monocytes Percent Auto 6.8 % (2-11); Neutrophils Absolute Auto 4.3 x10*3/uL (2.0-8.3); Neutrophils Percent Auto 67.4 % (45-73); Platelet Count 326 X10*3/uL (160-400); Red Blood Count 4.12 X10*6/uL (4.20-5.50); White Blood Count 6.3 X10*3/uL (4.8-10.8)
[2024-09-06 17:40] LABS: Alanine Aminotransferase 13 U/L (0-31); Albumin Level 4.1 g/dL (3.5-5.0); Alkaline Phosphatase 85 U/L (39-117); Anion Gap 10 (12-20); Aspartate Amino Transferase 19 U/L (5-31); Bilirubin Direct 0.1 mg/dL (0.0-0.5); Bilirubin Total 0.3 mg/dL (0.0-1.0); Blood Urea Nitrogen 11 mg/dL (9-16); Carbon Dioxide 26 mmol/L (22-29); Chloride 107 mmol/L (96-108); Creatinine Clr Calc Pharmacy 100.6; Estimated Glomerular Filt Rate > 60; Glucose Random 80 mg/dL (60-115); Lipase 45 U/L (8-78); Sodium 139 mmol/L (135-145); Total Protein 7.1 g/dL (6.5-8.0)
[2024-09-06 19:06] VITALS: BP 138/87; PULSE 50; RESP 16; O2SAT 100
[2024-09-06] MEDS: Sucralfate Oral Suspension 1 GM/10 ML ORAL.SUSP PO (19:53)
[2024-09-06] MEDS: Magnesium Hydrox/Alum Hydrox 30 ML ORAL.SUSP 60 ML PO (20:45)
[2024-09-06] MEDS: Pantoprazole Sodium 40 MG/10 ML VIAL IVPUSH (21:31)
[2024-09-06] MEDS: iohexoL 350 MG/ML 100 ML INFUS..BTL 85 ML IV (21:49)
[2024-09-06 22:15] VITALS: BP 127/70; PULSE 54; RESP 20; TEMP 36.7; O2SAT 100
[2024-09-06 23:10] VITALS: BP 127/70; PULSE 54; RESP 20; TEMP 36.7; O2SAT 100
== END 2024-09-06 23:14 | disposition home or self-care (01) ==
PROVIDERS: Physician Assistant; Emergency Provider Emergency Medicine
DX: R10.2 Pelvic and perineal pain (principal); R10.13 Epigastric pain; Z98.84 Bariatric surgery status; Z79.899 Other long term (current) drug therapy
CPT/HCPCS: 36415; 74177; 80048; 80076; 83690; 83735; 85025; 96374; 99284; J2470; Q9967

== ENCOUNTER → 2024-09-06 21:15 | Outpatient (BNV) | payer OTHER, SELFPAY | PROVIDERS: Emergency Provider Emergency Medicine; Visit Provider Radiology Diagnostic Radiology | DX: R10.13 Epigastric pain (principal); R10.819 Abdominal tenderness, unspecified site | CPT/HCPCS: 74177 ==

== ENCOUNTER 2024-11-14 11:25 | Emergency (ER) | payer OTHER, SELFPAY ==
--- NOTE | ~2024-11-14 | XR_ITS ---
EXAMINATION: XR FOOT, LEFT CLINICAL INFORMATION: pain COMPARISON: None available. TECHNIQUE: AP, lateral, and oblique views of the left foot. FINDINGS: No acute cortical disruption. No gross malalignment. No lytic or blastic lesions. No subcutaneous emphysema. No gross joint effusion. 3 mm well-corticated calcification in the plantar surface adjacent to the fifth metatarsophalangeal joint region not identified on the AP or the oblique projections. XR/XR foot LT min 3V IMPRESSION: No acute fracture or dislocation. No lytic or blastic lesions. Electronically signed by: Frank Partida MD 11/14/2024 12:19 PM EDT
--- NOTE | 2024-11-14 11:46 | ED.EXTPRO ---
HPI - Extremity Problem General Chief complaint: Extremity Injury, Lower Stated complaint: L foot pain/swelling Time Seen by Provider: 11/14/24 11:52 Source: patient Mode of arrival: ambulatory Limitations: no limitations History of Present Illness ED Provider: SARAH MISTRY Narrative: 49 yo female healthy here with c/o L foot sole pain for weeks but worsening. She feels tearing and pain when she walks. She has a job where she is 8 hours on her feet a day. She has also had 3 to 4 small corn areas on her foot but no redness or drainage. She states it just continues to persist and is making work harder. Anytime she gets up and tries to walk she feels sharp pain on the bottom of her foot. MD Complaint: joint pain Onset (ago): week(s) Pain Consistency: intermittent Location: left and other (foot) Quality: stabbing and aching Radiation: proximal Relieving factors: immobilization Exacerbating factors: walking and palpation Associated symptoms: denies other symptoms Related Data Previous Rx's ?Medication ?Instructions ?Recorded ondansetron 4 mg disintegrating 4 mg PO Q8H PRN nausea and 10/04/23 tablet vomiting #20 tabs pantoprazole 40 mg tablet,delayed 40 mg PO DAILY #90 tabs 10/04/23 release cholecalciferol (vitamin D3) 25 25 mcg PO DAILY #90 caps 10/31/23 mcg (1,000 unit) capsule iron,carbonyl 65 mg-vitamin C 125 1 tab PO BEDTIME #90 tabs 10/31/23 mg tablet,delayed release (Vitron-C) vitamin A palmitate 3,000 mcg 10,000 unit PO DAILY #90 caps 10/31/23 (10,000 unit) capsule omeprazole 40 mg capsule,delayed 40 mg PO DAILY #30 caps 09/06/24 release sucralfate 1 gram tablet 1 g PO TID PRN epigastric pain #60 09/06/24 tabs Allergies Allergy/AdvReac Type Severity Reaction Status Date / Time No Known Allergies (No Known Allergy Verified 11/14/24 11:49 Allergies*) Review of Systems Review of Systems: Constitutional : No Fever, No Chills Cardiovascular : No Chest Pain, No SOB Respiratory : No Cough, No Dyspnea Gastrointestinal : No Nausea, No Vomiting, No Diarrhea, No abdominal Pain Genitourinary : No Dysuria, No Hematuria Musculoskeletal : positive joint pain, No Myalgias, No Joint Swelling Skin : No Skin lacerations, No rash Neuro : No Weakness, No Numbness All other systems reviewed and are negative [facility] Past Medical History Attestation statement: The following information was validated with the patient. Source: old records reviewed Medical History No pertinent past medical history Surgical History H/O tubal ligation Hx of section H/O gastric sleeve Family History Family History Maternal Grandmother Breast CA Social History Social History Are you a primary home health care provider to a significant other at home: No Do you presently have visiting nurse or other home services: No Alcohol intake: never Patient Tobacco Use Status: Never used Tobacco Physical Exam Vital Signs: Vital Signs: Last Vital Signs Temp 97.3 F 11/14/24 11:47 Pulse 63 11/14/24 11:47 Resp 18 11/14/24 11:47 Pulse Ox 100 11/14/24 11:47 O2 Del Method Room Air 11/14/24 11:47 BMI result Body Mass Index 35.7 Appearance: Alert. Oriented X3. No acute distress. Eyes: Pupils equal, round and reactive to light. ENT: Pharynx normal. Neck: Normal inspection. CVS: Pulses normal. Respiratory: No respiratory distress. Abdomen: atraumatic Skin: Skin warm and dry. Extremities: No lower extremity edema. L sole of foot mild swelling, 3 uninfected lateral corns but her area of pain is on the plantar fascia insertion on the calcaneous, normal pulses, SILT intact, pain reproduced by stretching fascia. Neuro: Oriented X 3. No motor deficit. No sensory deficit. Medical Decision Making Medical Decision Making MDM Narrative: 49 yo female with no sig PMH here with L sole pain I do not think it is associated with her foot corn/callous. There are no signs of infection, her pulses are intact. At this time will obtain xray but discussed shoe inserts, PT, nighttime plantar fascia orthotics. Differential Diagnosis Differential Diagnoses: The differential diagnosis associated with the presentation includes tendonitis, plantar fasciitis Independent Interpretation I performed an independent interpretation of an: Plain X-Ray (normal ) Radiology Impression Discussion of test interpretation with radiology: I have reviewed the radiologist's reading. External Record Review External record reviewed: Outpatient record Prescription Management I considered prescription management with: Pain Medication Discharge Plan Discharge Clinical Impression: Plantar fasciitis of left foot Patient Disposition: Home, Self-Care Instructions: Plantar Fasciitis (ED) Additional Instructions: xray normal there are plantar inserts you can buy at [facility]/pharmacies you can also purchase online or [employer] a nighttime orthotic device for plantar fasciitis you need to call your doctor for physical therapy return for any worsening symptoms or concerns keep elevated can use heat/ice. you need to be careful on your first step when getting up from sleep or sitting down. Prescriptions: No Action Vitron-C 65 mg iron- 125 mg tablet,delayed release (DR/EC) 1 tab PO BEDTIME Qty: 90 3RF vitamin A palmitate 3,000 mcg (10,000 unit) capsule 10,000 unit PO DAILY Qty: 90 3RF cholecalciferol (vitamin D3) 25 mcg (1,000 unit) capsule 25 mcg PO DAILY Qty: 90 3RF omeprazole 40 mg capsule,delayed release(DR/EC) 40 mg PO DAILY Qty: 30 0RF sucralfate 1 gram tablet 1 g PO TID PRN (Reason: epigastric pain) Qty: 60 0RF ondansetron 4 mg tablet,disintegrating 4 mg PO Q8H PRN (Reason: nausea and vomiting) Qty: 20 1RF pantoprazole 40 mg tablet,delayed release (DR/EC) 40 mg PO DAILY Qty: 90 1RF Stand Alone Forms: Work/School Release Print Language: Portuguese
[2024-11-14 11:47] VITALS: PULSE 63; RESP 18; TEMP 36.3; O2SAT 100; BMI 35.7
[2024-11-14 13:04] VITALS: BP 00/00; PULSE 63; RESP 18; TEMP 36.3; O2SAT 100
== END 2024-11-14 13:05 | disposition home or self-care (01) ==
PROVIDERS: Emergency Provider Emergency Medicine; PCP Nurse Practitioner Family
DX: M72.2 Plantar fascial fibromatosis (principal); M79.672 Pain in left foot; R60.0 Localized edema
CPT/HCPCS: 73630; 99282; 99283

== ENCOUNTER → 2024-11-14 11:51 | Outpatient (BNV) | payer OTHER, SELFPAY | PROVIDERS: Emergency Provider Emergency Medicine; PCP Nurse Practitioner Family; Visit Provider Radiology Diagnostic Radiology | DX: M25.572 Pain in left ankle and joints of left foot (principal) | CPT/HCPCS: 73630 ==